=== PATIENT | male | born 1990 | race Caucasian/White ===

== ENCOUNTER 2017-02-23 15:19 | Emergency (ER) | payer OTHER ==
[2017-02-23] MEDS ORDERED: ONDANSETRON 4 MG/2 ML VIAL IVP STA (17:07)
[2017-02-23] MEDS ORDERED: PANTOPRAZOLE 40 MG/10 ML VIAL IVP STA (17:08)
--- NOTE | 2017-02-23 17:10 | ED ---
General Adult HPI - General Chief complaint: Abdominal Pain Stated complaint: abdominal pain/threw up blood Time Seen by Provider: 02/23/17 17:01 Source: patient, RN notes reviewed Mode of arrival: ambulatory Limitations: no limitations - History of Present Illness Initial comments: Patient is a 27-year-old male significant past medical history, who presents emergency room today with a chief complaint of symptoms of nausea vomiting and epigastric pain. He does admit that he had an episode of vomiting. States had a second episode he saw when he believes to be possibly some blood clots in the emesis. Patient states never had any symptoms similar to this in the past. Does admit that he did eat lunch this afternoon and then had an episode of vomiting approximately an hour later. Patient denies any complaints or symptoms. Patient denies any recent fever, chills, shortness of breath, chest pain, back pain, numbness or tingling, dysuria or hematuria, constipation or diarrhea, headaches or visual changes, or any other complaints. - Related Data Previous Rx's Medication Instructions Recorded Omeprazole 20 mg PO DAILY #20 capsule. 02/23/17 Ondansetron Odt [Zofran ODT] 4 mg PO Q8HR PRN #20 tab 02/23/17 Allergies Allergy/AdvReac Type Severity Reaction Status Date / Time cat dander AdvReac Wheezing Verified 02/23/17 15:35 Review of Systems ROS Statement: Those systems with pertinent positive or pertinent negative responses have been documented in the HPI. ROS Other: All systems not noted in ROS Statement are negative. Past Medical History Past Medical History: No Reported History History of Any Multi-Drug Resistant Organisms: None Reported Past Surgical History: No Surgical Hx Reported Past Psychological History: No Psychological Hx Reported Smoking Status: Current every day smoker Past Alcohol Use History: Occasional Past Drug Use History: None Reported General Exam - General Exam Comments Initial Comments: General: The patient is awake and alert, in no distress, and does not appear acutely ill. Eye: Pupils are equal, round and reactive to light, extra-ocular movements are intact. No nystagmus. There is normal conjunctiva bilaterally. No signs of icterus. Ears, nose, mouth and throat: There are moist mucous membranes and no oral lesions. Neck: The neck is supple, there is no tenderness or JVD. Cardiovascular: There is a regular rate and rhythm. No murmur, rub or gallop is appreciated. Respiratory: Lungs are clear to auscultation, respirations are non-labored, breath sounds are equal. No wheezes, stridor, rales, or rhonchi. Gastrointestinal: Soft on palpation. Mild tenderness epigastric. No rebound tenderness. No Guarding. No CVA tenderness. Musculoskeletal: Normal ROM, no tenderness. Strength 5/5. Sensation intact. Pulses equal bilaterally 2+. Neurological: A&O x 3. CN II-XII intact, There are no obvious motor or sensory deficits. Coordination appears grossly intact. Speech is normal. Skin: Skin is warm and dry and no rashes or lesions are noted. Psychiatric: Cooperative, appropriate mood & affect, normal judgment. Limitations: no limitations Course Vital Signs 02/23/17 02/23/17 15:33 17:34 Temperature 98.4 F 100.1 F H Pulse Rate 82 59 L Respiratory 20 18 Rate Blood Pressure 137/93 125/87 O2 Sat by Pulse 100 98 Oximetry Medical Decision Making - Medical Decision Making X-ray reviewed as negative for any acute abnormalities. Patient does admit to 2 episodes vomiting. Denies any blood until the second episode. Patient's abdomen is soft nontender at this time is feeling better. He was sleeping on stretcher. Patient's labs reviewed. Will be discharged home advised to follow family doctor will be continued on Zofran and Prilosec. - Lab Data Result diagrams: 02/23/17 17:05 02/23/17 17:05 Lab Results 02/23/17 02/23/17 02/23/17 Range/Units 17:05 17:05 17:30 WBC 11.1 H (3.8-10.6) k/uL RBC 5.21 (4.30-5.90) m/uL Hgb 16.5 (13.0-17.5) gm/dL Hct 48.6 (39.0-53.0) % MCV 93.3 (80.0-100.0) fL MCH 31.6 (25.0-35.0) pg MCHC 33.9 (31.0-37.0) g/dL RDW 12.7 (11.5-15.5) % Plt Count 258 (150-450) k/uL Neutrophils % 76 % Lymphocytes % 15 % Monocytes % 4 % Eosinophils % 4 % Basophils % 1 % Neutrophils # 8.5 H (1.3-7.7) k/uL Lymphocytes # 1.6 (1.0-4.8) k/uL Monocytes # 0.4 (0-1.0) k/uL Eosinophils # 0.4 (0-0.7) k/uL Basophils # 0.1 (0-0.2) k/uL Sodium 143 (137-145) mmol/L Potassium 4.1 (3.5-5.1) mmol/L Chloride 104 (98-107) mmol/L Carbon Dioxide 28 (22-30) mmol/L Anion Gap 11 mmol/L BUN 14 (9-20) mg/dL Creatinine 0.75 (0.66-1.25) mg/dL Est GFR (MDRD) Af Amer >60 (>60 ml/min/1.73 sqM) Est GFR (MDRD) Non-Af >60 (>60 ml/min/1.73 sqM) Glucose 113 H (74-99) mg/dL Calcium 10.5 H (8.4-10.2) mg/dL Total Bilirubin 0.7 (0.2-1.3) mg/dL AST 26 (17-59) U/L ALT 28 (21-72) U/L Alkaline Phosphatase 58 (38-126) U/L Total Protein 8.0 (6.3-8.2) g/dL Albumin 5.0 (3.5-5.0) g/dL Amylase 66 (30-110) U/L Lipase 68 (23-300) U/L Urine Color Yellow Urine Appearance Clear (Clear) Urine pH 6.5 (5.0-8.0) Ur Specific [place] 1.023 (1.001-1.035) Urine Protein Trace H (Negative) Urine Glucose (UA) Negative (Negative) Urine Ketones 1+ H (Negative) Urine Blood Negative (Negative) Urine Nitrite Negative (Negative) Urine Bilirubin Negative (Negative) Urine Urobilinogen <2.0 (<2.0) mg/dL Ur Leukocyte Esterase Negative (Negative) Disposition Clinical Impression: Nausea & vomiting Disposition: HOME SELF-CARE Condition: Good Instructions: Acute Nausea and Vomiting (ED) Additional Instructions: Please use medication as discussed. Please follow-up with family doctor in the next 2 days of symptoms have not improved. Please return to emergency room if the symptoms increase or worsen or for any other concerns. Prescriptions: Omeprazole 20 mg PO DAILY #20 capsule. Ondansetron Odt [Zofran ODT] 4 mg PO Q8HR PRN #20 tab PRN Reason: Nausea Referrals: None,Stated [Primary Care Provider] - 1-2 days Time of Disposition: 18:29
[2017-02-23 17:22] LABS: Basophils # (A) 0.1 k/uL (0-0.2); Basophils % (A) 1 %; CH 32.6; Eosinophils # (A) 0.4 k/uL (0-0.7); Eosinophils % (A) 4 %; HCT 48.6 % (39.0-53.0); HDW 2.39; HGB 16.5 gm/dL (13.0-17.5); Luc # (Auto) 0.15; Luc % (Auto) 1; Lymphocytes # (A) 1.6 k/uL (1.0-4.8); Lymphocytes % (A) 15 %; MCH 31.6 pg (25.0-35.0); MCHC 33.9 g/dL (31.0-37.0); MCV 93.3 fL (80.0-100.0); Mean Platelet Volume 6.9; Monocytes # (A) 0.4 k/uL (0-1.0); Monocytes % (A) 4 %; Neutrophils # (A) 8.5 k/uL (1.3-7.7); Neutrophils % (A) 76 %; RBC 5.21 m/uL (4.30-5.90); RDW 12.7 % (11.5-15.5); WBC 11.1 k/uL (3.8-10.6); WBC (Perox) 10.99
[2017-02-23 17:34] VITALS: RESP 18
[2017-02-23 17:41] LABS: ALT 28 U/L (21-72); AST 26 U/L (17-59); Alkaline Phosphatase 58 U/L (38-126); Amylase 66 U/L (30-110); Anion Gap 11 mmol/L; Blood Urea Nitrogen 14 mg/dL (9-20); Calcium 10.5 mg/dL (8.4-10.2); Carbon Dioxide 28 mmol/L (22-30); Chloride 104 mmol/L (98-107); Glucose 113 mg/dL (74-99); Non-African American GFR(MDRD) >60 (>60 ml/min/1.73 sqM); Potassium 4.1 mmol/L (3.5-5.1); Sodium 143 mmol/L (137-145); Total Bilirubin 0.7 mg/dL (0.2-1.3)
[2017-02-23 17:43] LABS: Appearance,Urine Clear (Clear); Bilirubin,Urine Negative (Negative); Glucose,Urine (UA) Negative (Negative); Ketones,Urine 1+ (Negative); Leukocyte Esterase,Urine Negative (Negative); Nitrite,Urine Negative (Negative); PH, Urine 6.5 (5.0-8.0); Protein,Urine Trace (Negative); Specific Gravity,Urine 1.023 (1.001-1.035); UA Billing (MACRO vs. MICRO) CHEM; Urobilinogen,Urine <2.0 mg/dL (<2.0)
--- NOTE | 2017-02-23 18:03 | XR ---
EXAMINATION TYPE: XR chest 2V DATE OF EXAM: 02/23/2017 COMPARISON: November 23, 2015 HISTORY: Vomited blood, pain TECHNIQUE: Frontal and lateral views of the chest are obtained. FINDINGS: There is no focal air space opacity, pleural effusion, or pneumothorax seen. The cardiac silhouette size is within normal limits. No pneumoperitoneum. The osseous structures are intact. IMPRESSION: No acute cardiopulmonary process.
[2017-02-23 18:41] VITALS: BP 131/84; PULSE 67; TEMP 99.7
== END 2017-02-23 18:41 | disposition home or self-care (01) ==
LOC: EC 15:19
DX: R11.2 Nausea with vomiting, unspecified (principal); R10.13 Epigastric pain; F17.200 Nicotine dependence, unspecified, uncomplicated; Z91.09 Other allergy status, other than to drugs and biological substances
CPT/HCPCS: 96374 ×2; 96375 ×2; 99284 ×2; 36415; 80053; 82150; 83690; 85025; 81003; 71020; J2405; C9113

== ENCOUNTER 2017-09-29 18:59 | Emergency (ER) | payer OTHER ==
[2017-09-29 19:10] VITALS: RESP 18
--- NOTE | 2017-09-29 19:42 | ED ---
Psych HPI - General Chief Complaint: Psychiatric Symptoms Stated Complaint: Mental Health Time Seen by Provider: 09/29/17 19:10 Source: patient, RN notes reviewed Mode of arrival: ambulatory Limitations: no limitations - History of Present Illness Initial Comments: 27-year-old male presents emergency from for psychiatric evaluation. Patient states that he had court today for driving while on a suspended license Patient states that he was ordered to have psychiatric evaluation within 30 days. Patient states she is not suicidal or homicidal. Denies depression, anxiety has no mental health history. Denies any illicit drug use. Patient states he is just here to comply with court order reasons. - Related Data Home Medications Medication Instructions Recorded Confirmed No Known Home Medications [No 09/29/17 09/29/17 Known Home Medications] Allergies Allergy/AdvReac Type Severity Reaction Status Date / Time cat dander AdvReac Wheezing Verified 09/29/17 19:30 Review of Systems ROS Statement: Those systems with pertinent positive or pertinent negative responses have been documented in the HPI. ROS Other: All systems not noted in ROS Statement are negative. Past Medical History Past Medical History: No Reported History History of Any Multi-Drug Resistant Organisms: None Reported Past Surgical History: No Surgical Hx Reported Past Psychological History: No Psychological Hx Reported Smoking Status: Current every day smoker Past Alcohol Use History: None Reported Past Drug Use History: None Reported General Exam Limitations: no limitations General appearance: alert, in no apparent distress Head exam: Present: atraumatic, normocephalic, normal inspection Eye exam: Present: normal appearance, PERRL, EOMI. Absent: scleral icterus, conjunctival injection, periorbital swelling ENT exam: Present: normal exam, normal oropharynx, mucous membranes moist, TM's normal bilaterally Neck exam: Present: normal inspection, full ROM. Absent: tenderness, meningismus, lymphadenopathy Respiratory exam: Present: normal lung sounds bilaterally. Absent: respiratory distress, wheezes, rales, rhonchi, stridor Cardiovascular Exam: Present: regular rate, normal rhythm, normal heart sounds. Absent: systolic murmur, diastolic murmur, rubs, gallop, clicks GI/Abdominal exam: Present: soft, normal bowel sounds. Absent: distended, tenderness, guarding, rebound, rigid Neurological exam: Present: alert, oriented X3, CN II-XII intact Psychiatric exam: Present: normal affect, normal mood Skin exam: Present: warm, dry, intact, normal color. Absent: rash Course Vital Signs 09/29/17 19:06 Temperature 98.6 F Pulse Rate 66 Respiratory 18 Rate Blood Pressure 158/88 O2 Sat by Pulse 100 Oximetry Medical Decision Making - Medical Decision Making 27-year-old male present emergency dept for psychiatric evaluation as ordered by court. Patient has no mental illnesses. Patient was evaluated by EPS case discussed with psychiatrist patient will be discharged. - Lab Data Lab Results 09/29/17 Range/Units 19:44 Urine Opiates Screen Not Detected (NotDetected) Ur Oxycodone Screen Not Detected (NotDetected) Urine Methadone Screen Not Detected (NotDetected) Ur Propoxyphene Screen Not Detected (NotDetected) Ur Barbiturates Screen Not Detected (NotDetected) U Tricyclic Antidepress Not Detected (NotDetected) Ur Phencyclidine Scrn Not Detected (NotDetected) Ur Amphetamines Screen Not Detected (NotDetected) U Methamphetamines Scrn Not Detected (NotDetected) U Benzodiazepines Scrn Not Detected (NotDetected) Urine Cocaine Screen Not Detected (NotDetected) U Marijuana (THC) Screen Not Detected (NotDetected) Disposition Clinical Impression: Encounter for psychological evaluation Disposition: HOME SELF-CARE Condition: Stable Additional Instructions: Please return to the Emergency Department if symptoms worsen or any other concerns. Referrals: None,Stated [Primary Care Provider] - 1-2 days Time of Disposition: 20:38
[2017-09-29 20:18] LABS: Amphetamine Screen,Urine Not Detected (NotDetected); Barbiturate Screen,Urine Not Detected (NotDetected); Benzodiazepines Screen,Urine Not Detected (NotDetected); Cocaine Screen,Urine Not Detected (NotDetected); Methadone Screen, Urine Not Detected (NotDetected); Opiate Screen,Urine Not Detected (NotDetected); Oxycodone Screen, Urine Not Detected (NotDetected); Phencyclidine Screen,Urine Not Detected (NotDetected); Tricyclic Antidepressant,Urine Not Detected (NotDetected); Urn Cannabinoid Scrn Not Detected (NotDetected)
[2017-09-29 20:55] VITALS: BP 129/79; PULSE 63; TEMP 98
== END 2017-09-29 20:55 | disposition home or self-care (01) ==
LOC: EC 18:59
DX: Z00.8 Encounter for other general examination (principal); Z91.048 Other nonmedicinal substance allergy status
CPT/HCPCS: 80306; 82075; 99284

== ENCOUNTER 2020-04-10 15:12 | Emergency (ER) | payer OTHER ==
[2020-04-10] MEDS ORDERED: SODIUM CHLORIDE 0.9% 1,000 ML IV STA (16:35)
[2020-04-10] MEDS ORDERED: LORazepam 2 MG/ML INJ IV STA (16:35)
[2020-04-10 17:02] LABS: Basophils % (A) 1 %; Eosinophils # (A) 0.1 k/uL (0-0.7); Eosinophils % (A) 1 %; HCT 43.4 % (39.0-53.0); Lymphocytes % (A) 20 %; MCHC 34.6 g/dL (31.0-37.0); MCV 95.3 fL (80.0-100.0); Mean Platelet Volume 8.4; Monocytes # (A) 0.2 k/uL (0-1.0); Monocytes % (A) 5 %; Neutrophils # (A) 3.8 k/uL (1.3-7.7); Neutrophils % (A) 72 %; Platelet Count 200 k/uL (150-450); RBC 4.56 m/uL (4.30-5.90); RDW 12.3 % (11.5-15.5); WBC 5.2 k/uL (3.8-10.6)
[2020-04-10 17:03] VITALS: RESP 18
[2020-04-10 17:17] LABS: INR 0.9 (<1.2); Partial Thromboplastin Time 23.7 sec (22.0-30.0); Prothrombin Time 9.8 sec (9.0-12.0)
[2020-04-10 17:25] LABS: ALT 37 U/L (4-49); AST 52 U/L (17-59); African American GFR (CKD) >90 (>60 ml/min/1.73 sqM); Albumin 4.5 g/dL (3.5-5.0); Alkaline Phosphatase 79 U/L (38-126); Anion Gap 9 mmol/L; Blood Urea Nitrogen 7 mg/dL (9-20); Calcium 9.4 mg/dL (8.4-10.2); Carbon Dioxide 24 mmol/L (22-30); Chloride 106 mmol/L (98-107); Glucose 102 mg/dL (74-99); Magnesium 1.7 mg/dL (1.6-2.3); Non-African American GFR(CKD) >90 (>60 ml/min/1.73 sqM); Potassium 3.8 mmol/L (3.5-5.1); Sodium 139 mmol/L (137-145); Total Bilirubin 0.5 mg/dL (0.2-1.3); Total Protein 7.1 g/dL (6.3-8.2)
--- NOTE | 2020-04-10 17:50 | XR ---
EXAMINATION TYPE: XR chest 2V DATE OF EXAM: 04/10/2020 CLINICAL HISTORY: Difficulty breathing TECHNIQUE: Frontal and lateral views of the chest are obtained. COMPARISON: Chest radiograph 02/23/2017 FINDINGS: The cardiomediastinal silhouette is within normal limits for size. Pulmonary vasculature i s normal. There is no focal air space opacity, pleural effusion, or pneumothorax seen. The osseous st ructures are intact. IMPRESSION: No acute cardiopulmonary process.
--- NOTE | 2020-04-10 17:55 | ED ---
General Adult HPI - General Chief complaint: Shortness of Breath Stated complaint: SOB,Lightheaded Time Seen by Provider: 04/10/20 16:25 Source: patient, RN notes reviewed, old records reviewed Mode of arrival: wheelchair Limitations: no limitations - History of Present Illness Initial comments: Patient is a 30-year-old male who presents emergency Department today with complaints of feeling short of breath and dizzy. He reports symptoms seem started around 11:00 today but is anxious. He followed his body just "shutting down". Patient states he has history of anxiety difficult to breathe through that is episodes. - Related Data Home Medications Medication Instructions Recorded Confirmed No Known Home Medications 09/29/17 09/29/17 Allergies Allergy/AdvReac Type Severity Reaction Status Date / Time cat dander AdvReac Wheezing Verified 04/10/20 16:03 Review of Systems ROS Statement: Those systems with pertinent positive or pertinent negative responses have been documented in the HPI. ROS Other: All systems not noted in ROS Statement are negative. Past Medical History Past Medical History: No Reported History History of Any Multi-Drug Resistant Organisms: None Reported Past Surgical History: No Surgical Hx Reported Past Psychological History: No Psychological Hx Reported Smoking Status: Current every day smoker Past Alcohol Use History: Occasional Past Drug Use History: None Reported General Exam - General Exam Comments Initial Comments: 30-year-old male. Alert and oriented. No distress. Limitations: no limitations General appearance: alert, in no apparent distress Head exam: Present: atraumatic, normocephalic, normal inspection Eye exam: Present: normal appearance, PERRL, EOMI. Absent: scleral icterus, conjunctival injection, periorbital swelling ENT exam: Present: normal exam, mucous membranes moist Neck exam: Present: normal inspection. Absent: tenderness, meningismus, lymphadenopathy Respiratory exam: Present: normal lung sounds bilaterally. Absent: respiratory distress, wheezes, rales, rhonchi, stridor Cardiovascular Exam: Present: regular rate, normal rhythm, normal heart sounds. Absent: systolic murmur, diastolic murmur, rubs, gallop, clicks GI/Abdominal exam: Present: soft, normal bowel sounds. Absent: distended, tenderness, guarding, rebound, rigid Extremities exam: Present: normal inspection, full ROM, normal capillary refill. Absent: tenderness, pedal edema, joint swelling, calf tenderness Back exam: Present: normal inspection Neurological exam: Present: alert, oriented X3, CN II-XII intact Psychiatric exam: Present: normal affect, normal mood Skin exam: Present: warm, dry, intact, normal color. Absent: rash Course Vital Signs 04/10/20 04/10/20 04/10/20 16:00 16:55 18:44 Temperature 98.7 F 98.4 F Pulse Rate 76 72 86 Respiratory 20 18 18 Rate Blood Pressure 155/93 132/93 131/87 O2 Sat by Pulse 99 96 97 Oximetry EKG Findings - EKG Comments: EKG Findings:: EKG shows normal sinus rhythm lateral infarct age injury. Ventricular rate of 80 beats were minute. Pulse 122 ms. QRS is 80 ms. QT QTc is 374/431 ms. Medical Decision Making - Medical Decision Making 30-year-old male since reassured today with episode of anxiety, any shakiness and feeling lightheaded. He was given IV fluids, and Ativan labwork obtained. EKG is reviewed and negative for acute changes. Patient was reevaluated and resting comfortably bed feeling better after receiving Ativan. Denies any chest pain at this time. I discussed the Patient symptoms seem related to anxiety and panic disorder. I advised Patient to follow-up with primary care doctor. Discussed strict return parameters. - Lab Data Result diagrams: 04/10/20 16:46 04/10/20 16:46 Lab Results 04/10/20 04/10/20 04/10/20 Range/Units 16:46 16:46 16:46 WBC 5.2 (3.8-10.6) k/uL RBC 4.56 (4.30-5.90) m/uL Hgb 15.0 (13.0-17.5) gm/dL Hct 43.4 (39.0-53.0) % MCV 95.3 (80.0-100.0) fL MCH 33.0 (25.0-35.0) pg MCHC 34.6 (31.0-37.0) g/dL RDW 12.3 (11.5-15.5) % Plt Count 200 (150-450) k/uL Neutrophils % 72 % Lymphocytes % 20 % Monocytes % 5 % Eosinophils % 1 % Basophils % 1 % Neutrophils # 3.8 (1.3-7.7) k/uL Lymphocytes # 1.0 (1.0-4.8) k/uL Monocytes # 0.2 (0-1.0) k/uL Eosinophils # 0.1 (0-0.7) k/uL Basophils # 0.0 (0-0.2) k/uL PT 9.8 (9.0-12.0) sec INR 0.9 (<1.2) APTT 23.7 (22.0-30.0) sec Sodium 139 (137-145) mmol/L Potassium 3.8 (3.5-5.1) mmol/L Chloride 106 (98-107) mmol/L Carbon Dioxide 24 (22-30) mmol/L Anion Gap 9 mmol/L BUN 7 L (9-20) mg/dL Creatinine 0.60 L (0.66-1.25) mg/dL Est GFR (CKD-EPI)AfAm >90 (>60 ml/min/1.73 sqM) Est GFR (CKD-EPI)NonAf >90 (>60 ml/min/1.73 sqM) Glucose 102 H (74-99) mg/dL Plasma Lactic Acid Brett (0.7-2.0) mmol/L Calcium 9.4 (8.4-10.2) mg/dL Magnesium 1.7 (1.6-2.3) mg/dL Total Bilirubin 0.5 (0.2-1.3) mg/dL AST 52 (17-59) U/L ALT 37 (4-49) U/L Alkaline Phosphatase 79 (38-126) U/L Troponin I (0.000-0.034) ng/mL NT-Pro-B Natriuret Pep pg/mL Total Protein 7.1 (6.3-8.2) g/dL Albumin 4.5 (3.5-5.0) g/dL 04/10/20 04/10/20 04/10/20 Range/Units 16:46 16:46 16:46 WBC (3.8-10.6) k/uL RBC (4.30-5.90) m/uL Hgb (13.0-17.5) gm/dL Hct (39.0-53.0) % MCV (80.0-100.0) fL MCH (25.0-35.0) pg MCHC (31.0-37.0) g/dL RDW (11.5-15.5) % Plt Count (150-450) k/uL Neutrophils % % Lymphocytes % % Monocytes % % Eosinophils % % Basophils % % Neutrophils # (1.3-7.7) k/uL Lymphocytes # (1.0-4.8) k/uL Monocytes # (0-1.0) k/uL Eosinophils # (0-0.7) k/uL Basophils # (0-0.2) k/uL PT (9.0-12.0) sec INR (<1.2) APTT (22.0-30.0) sec Sodium (137-145) mmol/L Potassium (3.5-5.1) mmol/L Chloride (98-107) mmol/L Carbon Dioxide (22-30) mmol/L Anion Gap mmol/L BUN (9-20) mg/dL Creatinine (0.66-1.25) mg/dL Est GFR (CKD-EPI)AfAm (>60 ml/min/1.73 sqM) Est GFR (CKD-EPI)NonAf (>60 ml/min/1.73 sqM) Glucose (74-99) mg/dL Plasma Lactic Acid Brett 1.9 (0.7-2.0) mmol/L Calcium (8.4-10.2) mg/dL Magnesium (1.6-2.3) mg/dL Total Bilirubin (0.2-1.3) mg/dL AST (17-59) U/L ALT (4-49) U/L Alkaline Phosphatase (38-126) U/L Troponin I <0.012 (0.000-0.034) ng/mL NT-Pro-B Natriuret Pep <11 pg/mL Total Protein (6.3-8.2) g/dL Albumin (3.5-5.0) g/dL - Radiology Data Radiology results: report reviewed Chest x-ray shows no acute process. Disposition Clinical Impression: Anxiety Disposition: HOME SELF-CARE Condition: Good Instructions (If sedation given, give patient instructions): Anxiety (ED) Additional Instructions: Please use medication as discussed. Please follow up with family doctor if symptoms have not improved over the next two days. Please return to the emergency room if your symptoms increase or worsen or for any other concerns. Is patient prescribed a controlled substance at d/c from ED?: No Referrals: None,Stated [Primary Care Provider] - 1-2 days Saad Forman MD [REFERRING] - 1-2 days Time of Disposition: 18:30
[2020-04-10 18:46] VITALS: BP 131/87; PULSE 86; TEMP 98.4
== END 2020-04-10 18:47 | disposition home or self-care (01) ==
LOC: EC 15:12
DX: F41.9 Anxiety disorder, unspecified (principal); F17.200 Nicotine dependence, unspecified, uncomplicated; Z91.09 Other allergy status, other than to drugs and biological substances
CPT/HCPCS: 36415; 93005; 83880; 80053; 83605; 83735; 84484; 85025; 85610; 85730; 71046; 99285; 96374; 96361 ×2; J2060

== ENCOUNTER 2022-06-05 10:47 | Emergency (ER) | payer BC, OTHER ==
[2022-06-05 10:50] VITALS: RESP 18
--- NOTE | 2022-06-05 11:37 | XR ---
EXAMINATION TYPE: XR finger RT DATE OF EXAM: 06/05/2022 COMPARISON: NONE HISTORY: 32-year-old male pain and trauma to the third digit. TECHNIQUE: 3 views coned down right middle finger FINDINGS: There is a nondisplaced fracture involving the tuft of the third distal phalanx. No subluxation or di slocation. IMPRESSION: Exam positive for a nondisplaced fracture third distal phalangeal tuft.
--- NOTE | 2022-06-05 11:53 | ED ---
Upper Extremity HPI - General Chief Complaint: Extremity Injury, Upper Stated Complaint: Poss broken finger Time Seen by Provider: 06/05/22 10:48 Source: patient, RN notes reviewed Mode of arrival: ambulatory Limitations: no limitations - History of Present Illness Initial Comments: 32-year-old male presents emergency Department chief complaint of right hand middle finger injury. Patient states his playing softball states took off the tip of his finger. Patient states is moderate pain, bruising swelling today. Patient denies any other injuries. Patient states he is able to move it. - Related Data Home Medications Medication Instructions Recorded Confirmed No Known Home Medications 09/29/17 09/29/17 Allergies Allergy/AdvReac Type Severity Reaction Status Date / Time cat dander AdvReac Wheezing Verified 04/10/20 16:03 milk AdvReac Nausea & Verified 06/05/22 10:50 Vomiting & Diarrhea Review of Systems ROS Statement: Those systems with pertinent positive or pertinent negative responses have been documented in the HPI. ROS Other: All systems not noted in ROS Statement are negative. Past Medical History Past Medical History: No Reported History History of Any Multi-Drug Resistant Organisms: None Reported Past Surgical History: No Surgical Hx Reported Past Psychological History: No Psychological Hx Reported Smoking Status: Former smoker Past Alcohol Use History: Occasional Past Drug Use History: None Reported General Exam Limitations: no limitations General appearance: alert, in no apparent distress Head exam: Present: atraumatic, normocephalic, normal inspection Respiratory exam: Present: normal lung sounds bilaterally. Absent: respiratory distress, wheezes, rales, rhonchi, stridor Cardiovascular Exam: Present: regular rate, normal rhythm, normal heart sounds. Absent: systolic murmur, diastolic murmur, rubs, gallop, clicks Extremities exam: Present: other (Right hand third digit there is moderate swelling and ecchymosis in the distal portion, tenderness of palpation full range of motion LS contact) Course Vital Signs 06/05/22 10:47 Temperature 98.2 F Pulse Rate 74 Respiratory 18 Rate Blood Pressure 181/104 O2 Sat by Pulse 100 Oximetry Medical Decision Making - Medical Decision Making 32-year-old presented for right hand injury patient has a fracture patient was placed in a finger splint patient will follow-up for witha piece. Return parameters were discussed. Disposition Clinical Impression: Finger fracture, right Disposition: HOME SELF-CARE Condition: Stable Instructions (If sedation given, give patient instructions): Finger Fracture (ED) Additional Instructions: Please return to the Emergency Department if symptoms worsen or any other concerns. Is patient prescribed a controlled substance at d/c from ED?: No Referrals: None,Stated [Primary Care Provider] - 1-2 days Time of Disposition: 11:53
[2022-06-05 12:35] VITALS: BP 163/108; PULSE 57; TEMP 98
== END 2022-06-05 12:35 | disposition home or self-care (01) ==
LOC: EC 10:47
DX: S62.662A Nondisplaced fracture of distal phalanx of right middle finger, initial encounter for closed fracture (principal); Z87.891 Personal history of nicotine dependence; Z91.048 Other nonmedicinal substance allergy status; Z91.011 Allergy to milk products; W21.07XA Struck by softball, initial encounter; Y93.64 Activity, baseball
CPT/HCPCS: 99284

== ENCOUNTER 2022-06-15 10:42 | Inpatient (IN) | payer OTHER ==
[2022-06-15] MEDS ORDERED: SODIUM CHLORIDE 0.9% 1,000 ML IV STA (11:11)
[2022-06-15] MEDS ORDERED: SODIUM CHLORIDE 0.9% 1,000 ML with THIAMINE 100 MG, FOLIC ACID 1 MG IV ONE ×3 (11:15)
[2022-06-15] MEDS ORDERED: LORazepam 1 MG TAB PO PRN ×3 (11:19)
[2022-06-15] MEDS ORDERED: LORazepam 2 MG/ML INJ IV PRN (11:19)
[2022-06-15] MEDS ORDERED: LORazepam 0.5 MG TAB PO PRN (11:19)
[2022-06-15] MEDS ORDERED: chlordiazePOXIDE 25 MG CAP PO PRN ×2 (11:25)
[2022-06-15 11:27] LABS: Basophils # (A) 0.1 k/uL (0-0.2); Basophils % (A) 1 %; Eosinophils # (A) 0.2 k/uL (0-0.7); Eosinophils % (A) 4 %; HCT 43.6 % (39.0-53.0); HGB 15.1 gm/dL (13.0-17.5); Lymphocytes # (A) 1.6 k/uL (1.0-4.8); Lymphocytes % (A) 29 %; MCH 31.7 pg (25.0-35.0); MCHC 34.5 g/dL (31.0-37.0); MCV 91.8 fL (80.0-100.0); Mean Platelet Volume 8.5; Monocytes # (A) 0.3 k/uL (0-1.0); Monocytes % (A) 6 %; Neutrophils # (A) 3.1 k/uL (1.3-7.7); Neutrophils % (A) 57 %; Platelet Count 191 k/uL (150-450); RBC 4.75 m/uL (4.30-5.90); WBC 5.4 k/uL (3.8-10.6)
[2022-06-15 11:36] LABS: ALT 71 U/L (4-49); AST 113 U/L (17-59); African American GFR (CKD) >90 (>60 ml/min/1.73 sqM); Albumin 4.6 g/dL (3.5-5.0); Alkaline Phosphatase 93 U/L (38-126); Anion Gap 15 mmol/L; Blood Urea Nitrogen 9 mg/dL (9-20); Calcium 9.3 mg/dL (8.4-10.2); Carbon Dioxide 23 mmol/L (22-30); Chloride 102 mmol/L (98-107); Glucose 117 mg/dL (74-99); Lipase 168 U/L (23-300); Magnesium 1.6 mg/dL (1.6-2.3); Non-African American GFR(CKD) >90 (>60 ml/min/1.73 sqM); Potassium 3.5 mmol/L (3.5-5.1); Sodium 140 mmol/L (137-145); Total Bilirubin 0.9 mg/dL (0.2-1.3); Total Protein 7.4 g/dL (6.3-8.2)
[2022-06-15 11:40] LABS: Alcohol 196 mg/dL
--- NOTE | 2022-06-15 11:48 | XR ---
EXAMINATION TYPE: XR chest 2V DATE OF EXAM: 06/15/2022 11:26 AM COMPARISON: Chest radiographs from 04/10/2020 TECHNIQUE: XR chest 2V Frontal and lateral views of the chest. CLINICAL INDICATION:Male, 32 years old with history of Chest Pain; FINDINGS: Lungs/Pleura: There is no evidence of pleural effusion, focal consolidation, or pneumothorax. Pulmonary vascularity: Unremarkable. Heart/mediastinum: Cardiomediastinal silhouette is unremarkable. Musculoskeletal: No acute osseous pathology. IMPRESSION: No acute cardiopulmonary disease/process.
[2022-06-15 12:07] LABS: INR 0.9 (<1.2); Partial Thromboplastin Time 25.1 sec (22.0-30.0)
[2022-06-15] MEDS: chlordiazePOXIDE 25 MG CAP PO PRN ×3 (12:20→21:09)
--- NOTE | 2022-06-15 12:53 | ED ---
Chest Pain HPI - General Chief Complaint: Chest Pain Stated Complaint: Chest pain Time Seen by Provider: 06/15/22 11:02 Source: patient Mode of arrival: ambulatory Limitations: no limitations - History of Present Illness Initial Comments: Patient is a 32-year-old male with a past medical history of alcohol use disorder who presents to the emergency department with a chief complaint of chest heaviness. Patient states he feels very anxious which is causing an anxious/heaviness feeling across his chest. Patient states symptoms started this morning around 10 AM and are consistent. There is no radiation. He denies lightheadedness, dizziness, abdominal pain, nausea, vomiting, sweating. Patient has been drinking a fifth or so of vodka for the past week and a half. Patient adamant that he would like to stop drinking. Last drink was this morning. He admits to history of delirium tremens. Denies history of alcohol withdrawal seizure. Reports occasional use of marijuana otherwise denies drug use. Denies tobacco use. Denies history of cardiac disease. Family history of cardiac disease includes father with diabetes and brother with hypertension. - Related Data Home Medications Medication Instructions Recorded Confirmed No Known Home Medications 09/29/17 09/29/17 Allergies Allergy/AdvReac Type Severity Reaction Status Date / Time cat dander AdvReac Wheezing Verified 06/15/22 10:49 milk AdvReac Nausea & Verified 06/15/22 10:49 Vomiting & Diarrhea Review of Systems ROS Statement: Those systems with pertinent positive or pertinent negative responses have been documented in the HPI. ROS Other: All systems not noted in ROS Statement are negative. EKG Findings - EKG Comments: EKG Findings:: EKG taken at its 10:54. Sinus rhythm with sinus arrhythmia, no ST segment or T-wave abnormality. Ventricular rate 76. MD interval 124. QRS duration 105. QTc 425 Past Medical History Past Medical History: No Reported History History of Any Multi-Drug Resistant Organisms: None Reported Past Surgical History: No Surgical Hx Reported Past Psychological History: No Psychological Hx Reported Smoking Status: Vaper Past Alcohol Use History: Abuse, Daily Past Drug Use History: None Reported General Exam Limitations: no limitations General appearance: alert, anxious Eye exam: Present: normal appearance, PERRL, EOMI. Absent: scleral icterus, conjunctival injection, periorbital swelling ENT exam: Present: other (tongue fasciculations) Respiratory exam: Present: normal lung sounds bilaterally. Absent: respiratory distress, wheezes, rales, rhonchi, stridor, chest wall tenderness Cardiovascular Exam: Present: regular rate, normal rhythm, normal heart sounds. Absent: systolic murmur, diastolic murmur, rubs, gallop, clicks GI/Abdominal exam: Present: soft, normal bowel sounds. Absent: distended, tenderness, guarding, rebound, rigid Extremities exam: Present: other (bilateral hand tremors) Neurological exam: Present: alert, oriented X3, CN II-XII intact Psychiatric exam: Present: normal affect, normal mood Skin exam: Present: warm (y), dry, intact, normal color. Absent: rash Course Vital Signs 06/15/22 06/15/22 06/15/22 10:46 11:30 12:00 Temperature 98 F Pulse Rate 89 91 105 H Respiratory 20 20 22 Rate Blood Pressure 179/110 170/120 161/113 O2 Sat by Pulse 100 98 98 Oximetry 06/15/22 12:30 Temperature Pulse Rate 94 Respiratory 24 Rate Blood Pressure 170/106 O2 Sat by Pulse 98 Oximetry Chest Pain MDM - MDM This is a 32-year-old male who presents with chest heaviness.The pressure elevated at 179/110. Pulse within normal limits 89. Patient appears anxious otherwise in no distress. Biateral hand tremors and tongue fasciculation is noted. EKG shows sinus rhythm with sinus arrhythmia, no ST segment or T-wave abnormalities. Laboratory studies obtained. Troponin is within normal limits. Serum alcohol is 196. Patient at low risk for adverse cardiac outcome and p resentation today appears to be related to anxiety and alcohol intoxication/withdrawal. Se[place]ell scale initiated. Patient was given Librium 75 mg which improved anxiety and chest tightness. Banana bag given. Results discussed with patient. Patient to be admitted for alcohol intoxication with early withdrawal. Will trend troponin. Catapress given for consistently elevated blood pressure. Case discussed with Dr. Phillips who accepts admission. Patient admitted in stable condition. Dr. Newman is my attending. Disposition Clinical Impression: Anxiety, Alcohol withdrawal, Alcohol intoxication Disposition: ADMITTED IP TO THIS [facility] Condition: Good Referrals: None,Stated [Primary Care Provider] - 1-2 days Decision Time: 12:53
[2022-06-15 13:07] LABS: Appearance,Urine Clear (Clear); Bilirubin,Urine Negative (Negative); Blood,Urine Negative (Negative); Color,Urine Yellow; Glucose,Urine (UA) Negative (Negative); Ketones,Urine 1+ (Negative); Leukocyte Esterase,Urine Negative (Negative); Mucus,Urine Few /hpf; Nitrite,Urine Negative (Negative); PH, Urine 6.5 (5.0-8.0); Protein,Urine 1+ (Negative); RBC,Urine <1 /hpf (0-5); Specific Gravity,Urine 1.012 (1.001-1.035); Squamous Epithelial Cell,Urine <1 /hpf (0-4); Urobilinogen,Urine <2.0 mg/dL (<2.0); WBC,Urine 2 /hpf (0-5)
[2022-06-15 13:20] LABS: Amphetamine Screen,Urine Not Detected (NotDetected); Barbiturate Screen,Urine Not Detected (NotDetected); Benzodiazepines Screen,Urine Not Detected (NotDetected); Cocaine Screen,Urine Not Detected (NotDetected); Methadone Screen, Urine Not Detected (NotDetected); Opiate Screen,Urine Not Detected (NotDetected); Oxycodone Screen, Urine Not Detected (NotDetected); Phencyclidine Screen,Urine Not Detected (NotDetected); Tricyclic Antidepressant,Urine Not Detected (NotDetected); Urn Cannabinoid Scrn Not Detected (NotDetected)
[2022-06-15] MEDS ORDERED: NALOXONE 0.4 MG/ML 1 ML VIAL IV PRN (13:34)
[2022-06-15] MEDS ORDERED: cloNIDine HCL 0.1 MG TAB PO STA (13:35)
[2022-06-15] MEDS: SODIUM CHLORIDE 0.9% 1,000 ML IV SCH (17:06)
--- NOTE | 2022-06-15 21:23 | P.HPIM ---
History of Present Illness H&P Date: 06/15/22 Chief Complaint: Chest heaviness Pt. is a 32-year-old male with a known history of daily alcohol use presents to ER with complaints of chest heaviness. Patient states that he has been having the anxious and chest heaviness started this morning around 10 AM and he has been constant since then. Denies any radiation of the pain. No associated nausea vomiting or diaphoresis. No abdominal pain. Patient is trying to quit alcohol. He has been drinking more than fifth of vodka daily for the past week. Patient does have prior history of DTs. No complaints of shortness of breath. No headache or dizziness. No leg swelling. No palpitations. Denies any family history of premature heart disease. Chest x-ray showed no acute cardiopulmonary process. EKG showed sinus rhythm with sinus arrhythmia. Laboratory pressure WBC 5.4 hemoglobin 15.1 and platelets 191 Sodium 140 potassium 3.5 chloride 102 bicarb is 23 BUN 9 and creatinine 0.65 blood sugar is 117 AST 113 ALT 71 alk phos 93 and troponin x1 negative. Lipase level 168. Urinalysis is negative for infection UDS negative and serum alcohol level is 196. Acute alcohol intoxication Chest heaviness likely due to severe anxiety. EKG and troponin x1 negative. Chest x-ray showed no acute process. Resolved now. Acute alcohol hepatitis History of alcohol withdrawal symptoms and DTs. Hypokalemia Daily alcohol abuse Daily smoking/vaping. DVT prophylaxis with heparin subcu Plan: Patient will be continued on IV hydration with normal saline continue to monitor for alcohol withdrawal symptoms. EKG and troponin x1 negative. Denies any complaints of chest heaviness now. Continue GI and DVT prophylaxis. Follow-up closely. Smoking cessation and alcohol abstinence has been counseled extensively. Past Medical History Past Medical History: No Reported History History of Any Multi-Drug Resistant Organisms: None Reported Past Surgical History: No Surgical Hx Reported Past Psychological History: No Psychological Hx Reported Smoking Status: Vaper Past Alcohol Use History: Abuse, Daily Past Drug Use History: None Reported Medications and Allergies Home Medications Medication Instructions Recorded Confirmed Type No Known Home Medications 09/29/17 06/15/22 History Allergies Allergy/AdvReac Type Severity Reaction Status Date / Time cat dander AdvReac Wheezing Verified 06/15/22 14:14 milk AdvReac Nausea & Verified 06/15/22 14:14 Vomiting & Diarrhea Physical Exam Vitals: Vital Signs Temp Pulse Resp BP Pulse Ox 06/15/22 17:00 78 16 139/88 97 06/15/22 13:30 80 16 150/96 97 06/15/22 12:30 94 24 170/106 98 06/15/22 12:00 105 H 22 161/113 98 06/15/22 11:30 91 20 170/120 98 06/15/22 10:46 98 F 89 20 179/110 100 Intake and Output 06/15/22 06/15/22 06/15/22 06:59 14:59 22:59 Other: Weight 54.431 kg Results CBC & Chem 7: 06/15/22 10:54 06/15/22 10:54 Labs: Abnormal Lab Results - Last 24 Hours (Table) 06/15/22 06/15/22 Range/Units 10:54 12:50 Creatinine 0.65 L (0.66-1.25) mg/dL Glucose 117 H (74-99) mg/dL AST 113 H (17-59) U/L ALT 71 H (4-49) U/L Urine Protein 1+ H (Negative) Urine Ketones 1+ H (Negative) Urine Mucus Few H (None) /hpf
[2022-06-16] MEDS: FAMOTIDINE 20 MG TAB PO SCH ×3 (00:30→21:11)
[2022-06-16] MEDS: chlordiazePOXIDE 25 MG CAP PO PRN ×2 (08:24→21:15)
[2022-06-16] MEDS: HEPARIN SODIUM,PORCINE/PF 5,000 UNIT/0.5 ML SYRINGE SQ SCH ×2 (08:24→21:11)
[2022-06-16 09:30] LABS: Basophils # (A) 0.03 X 10*3/uL (0.00-0.10); Basophils % (A) 0.7 %; Eosinophils # (A) 0.34 X 10*3/uL (0.04-0.35); Eosinophils % (A) 8.4 %; HCT 40.8 % (39.6-50.0); HGB 13.5 g/dL (13.0-17.0); Immature Grans, Automated 0 %; Lymphocytes # (A) 1.35 X 10*3/uL (0.90-5.00); Lymphocytes % (A) 33.3 %; MCH 31.8 pg (27.0-32.0); MCHC 33.1 g/dL (32.0-37.0); MCV 96.2 fL (80.0-97.0); Mean Platelet Volume 10.2 fL (9.5-12.2); Monocytes # (A) 0.34 X 10*3/uL (0.20-1.00); Monocytes % (A) 8.4 %; NRBC Per 100 WBC 0 /100 WBCS (0.0-0.0); Neutrophils % (A) 49.2 %; Platelet Count 166 X 10*3/uL (140-440); RBC 4.24 X 10*6/uL (4.40-5.60); RDW 12.8 % (11.5-14.5); WBC 4.06 X 10*3/uL (4.50-10.00)
[2022-06-16 09:32] LABS: Albumin 4.1 g/dL (3.8-4.9); Albumin/Globulin Ratio 1.86 (1.60-3.17); Anion Gap 17.1 mmol/L (10.00-18.00); BUN/Creat Ratio 16.13 Ratio (12.00-20.00); Blood Urea Nitrogen 12.9 mg/dL (9.0-27.0); Calcium 8.4 mg/dL (8.7-10.3); Carbon Dioxide 21.9 mmol/L (20.0-27.5); Globulin 2.2 g/dL (1.6-3.3); Non-African American GFR(CKD) 117.4 (60.0-200.0); Potassium 4.3 mmol/L (3.5-5.5); Total Bilirubin 1.3 mg/dL (0.30-1.20); Total Protein 6.3 g/dL (6.2-8.2)
[2022-06-16] MEDS: SODIUM CHLORIDE 0.9% 1,000 ML IV SCH ×3 (12:19→23:24)
--- NOTE | 2022-06-17 02:02 | P.PN ---
Subjective Progress Note Date: 06/16/22 Pt. is a 32-year-old male with a known history of daily alcohol use presents to ER with complaints of chest heaviness. Patient states that he has been having the anxious and chest heaviness started this morning around 10 AM and he has been constant since then. Denies any radiation of the pain. No associated nausea vomiting or diaphoresis. No abdominal pain. Patient is trying to quit alcohol. He has been drinking more than fifth of vodka daily for the past week. Patient does have prior history of DTs. No complaints of shortness of breath. No headache or dizziness. No leg swelling. No palpitations. Denies any family history of premature heart disease. Chest x-ray showed no acute cardiopulmonary process. EKG showed sinus rhythm with sinus arrhythmia. Laboratory pressure WBC 5.4 hemoglobin 15.1 and platelets 191 Sodium 140 potassium 3.5 chloride 102 bicarb is 23 BUN 9 and creatinine 0.65 blood sugar is 117 AST 113 ALT 71 alk phos 93 and troponin x1 negative. Lipase level 168. Urinaly sis is negative for infection UDS negative and serum alcohol level is 196. 06/16/2022 Patient is sitting in the bed. Awake alert and oriented. Feels very anxious and shaky. Still requiring Librium for alcohol withdrawal symptoms. No complaints of chest pain or heaviness. No nausea vomiting abdominal pain or diarrhea. Blood pressure is elevated with SBP in 140s. Patient is being current on IV hydration and Librium and Pepcid. Continued on alcohol withdrawal protocol. Laboratory data reviewed. Liver enzymes are trending down. Current medications reviewed. Objective - Vital Signs Vital signs: Vital Signs Temp 98.1 F 06/16/22 17:56 Pulse 88 06/16/22 17:56 Resp 18 06/16/22 17:56 BP 148/82 06/16/22 17:56 Pulse Ox 98 06/16/22 17:56 FiO2 Intake & Output 06/16/22 06/16/22 06/17/22 06:59 18:59 06:59 Weight 54.431 kg Other: Voiding Method Toilet # Voids 2 - Exam PHYSICAL EXAMINATION: Patient is lying in the bed comfortably, no acute distress, awake alert and oriented.. Shaky and tremulous HEENT: Normocephalic. Neck is supple. Pupils reactive. Nostrils clear. Oral cavity is moist. Neck reveals no JVD, carotid bruits, or thyromegaly. CHEST EXAMINATION: Trachea is central. Symmetrical expansion. Lung barba clear to auscultation and percussion. CARDIAC: Normal S1, S2 with no gallops. No murmurs ABDOMEN: Soft. Bowel sounds present. Nontender. No organomegaly. No abdominal bruits. Extremities: reveal no edema. No clubbing or cyanosis Neurologically awake, alert, oriented x3 with well-coordinated movements. No focal deficits noted Skin: No rash or skin lesions. Psychiatric: Coperative. Nonsuicidal, Musculoskeletal: No joint swelling or deformity. Normal range of motion. - Labs CBC & Chem 7: 06/16/22 05:16 06/16/22 05:16 Labs: Abnormal Lab Results - Last 24 Hours (Table) 06/16/22 06/16/22 Range/Units 05:16 05:16 WBC 4.06 L (4.50-10.00) X 10*3/uL RBC 4.24 L (4.40-5.60) X 10*6/uL Glucose 61 L (70-110) mg/dL Calcium 8.4 L (8.7-10.3) mg/dL Total Bilirubin 1.30 H (0.30-1.20) mg/dL AST 70 H (14-35) U/L ALT 56 H (10-49) U/L Assessment and Plan Assessment: Acute alcohol withdrawal symptoms Acute alcohol intoxication Chest heaviness likely due to severe anxiety. EKG and troponin x1 negative. Chest x-ray showed no acute process. Resolved now. Acute alcohol hepatitis History of alcohol withdrawal symptoms and DTs. Hypokalemia Daily alcohol abuse Daily smoking/vaping. DVT prophylaxis with heparin subcu Plan: Patient will be continued on IV hydration with normal saline continue to monitor for alcohol withdrawal symptoms. EKG and troponin x1 negative. Denies any complaints of chest heaviness now. Continue GI and DVT prophylaxis. Follow-up closely. Smoking cessation and alcohol abstinence has been counseled extensively. Time with Patient: Greater than 30
[2022-06-17] MEDS: FAMOTIDINE 20 MG TAB PO SCH ×2 (08:11→20:27)
[2022-06-17] MEDS: HEPARIN SODIUM,PORCINE/PF 5,000 UNIT/0.5 ML SYRINGE SQ SCH ×2 (08:11→20:27)
[2022-06-17 09:20] LABS: Basophils # (A) 0.03 X 10*3/uL (0.00-0.10); Basophils % (A) 0.9 %; Eosinophils # (A) 0.35 X 10*3/uL (0.04-0.35); Eosinophils % (A) 10.2 %; HCT 38.3 % (39.6-50.0); HGB 12.8 g/dL (13.0-17.0); Immature Grans, Automated 0.3 %; Lymphocytes # (A) 1.41 X 10*3/uL (0.90-5.00); MCH 31.9 pg (27.0-32.0); MCHC 33.4 g/dL (32.0-37.0); MCV 95.5 fL (80.0-97.0); Mean Platelet Volume 10.4 fL (9.5-12.2); Monocytes # (A) 0.39 X 10*3/uL (0.20-1.00); Monocytes % (A) 11.3 %; NRBC Per 100 WBC 0 /100 WBCS (0.0-0.0); Neutrophils # (A) 1.25 X 10*3/uL (1.80-7.70); Neutrophils % (A) 36.3 %; Platelet Count 144 X 10*3/uL (140-440); RBC 4.01 X 10*6/uL (4.40-5.60); RDW 12.3 % (11.5-14.5); WBC 3.44 X 10*3/uL (4.50-10.00)
[2022-06-17 10:54] LABS: African American GFR (CKD) 144.8 (60.0-200.0); Albumin 3.7 g/dL (3.8-4.9); Albumin/Globulin Ratio 1.78 (1.60-3.17); Anion Gap 7.7 mmol/L (10.00-18.00); BUN/Creat Ratio 16.3 Ratio (12.00-20.00); Blood Urea Nitrogen 11.2 mg/dL (9.0-27.0); Calcium 8.5 mg/dL (8.7-10.3); Carbon Dioxide 25.7 mmol/L (20.0-27.5); Globulin 2.1 g/dL (1.6-3.3); Total Bilirubin 0.6 mg/dL (0.30-1.20); Total Protein 5.8 g/dL (6.2-8.2)
[2022-06-17 11:06] VITALS: RESP 18
[2022-06-17] MEDS: chlordiazePOXIDE 25 MG CAP PO PRN (12:21)
[2022-06-17] MEDS: SODIUM CHLORIDE 0.9% 1,000 ML IV SCH ×2 (12:22→23:35)
--- NOTE | 2022-06-17 15:22 | P.PN ---
Subjective Progress Note Date: 06/17/22 Pt. is a 32-year-old male with a known history of daily alcohol use presents to ER with complaints of chest heaviness. Patient states that he has been having the anxious and chest heaviness started this morning around 10 AM and he has been constant since then. Denies any radiation of the pain. No associated nausea vomiting or diaphoresis. No abdominal pain. Patient is trying to quit alcohol. He has been drinking more than fifth of vodka daily for the past week. Patient does have prior history of DTs. No complaints of shortness of breath. No headache or dizziness. No leg swelling. No palpitations. Denies any family history of premature heart disease. Chest x-ray showed no acute cardiopulmonary process. EKG showed sinus rhythm with sinus arrhythmia. Laboratory pressure WBC 5.4 hemoglobin 15.1 and platelets 191 Sodium 140 potassium 3.5 chloride 102 bicarb is 23 BUN 9 and creatinine 0.65 b lood sugar is 117 AST 113 ALT 71 alk phos 93 and troponin x1 negative. Lipase level 168. Urinalysis is negative for infection UDS negative and serum alcohol level is 196. 06/16/2022 Patient is sitting in the bed. Awake alert and oriented. Feels very anxious and shaky. Still requiring Librium for alcohol withdrawal symptoms. No complaints of chest pain or heaviness. No nausea vomiting abdominal pain or diarrhea. Blood pressure is elevated with SBP in 140s. Patient is being current on IV hydration and Librium and Pepcid. Continued on alcohol withdrawal protocol. Laboratory data reviewed. Liver enzymes are trending down. 06/17/22. Patient seen and examined. Patient CIWA scores are improving. Still shaky. Denies any auditory or visual hallucinations. Vital signs stable REVIEW OF SYSTEMS: CONSTITUTIONAL: No fever, no malaise, no fatigue. HEENT: No recent visual problems or hearing problems. Denied any sore throat. CARDIOVASCULAR: No chest pain, orthopnea, PND, no palpitations, no syncope. PULMONARY: No shortness of breath, no cough, no hemoptysis. GASTROINTESTINAL: No diarrhea, no nausea, no vomiting, no abdominal pain. PHYSICAL EXAMINATION: GENERAL: The patient is alert and oriented x3, not in any acute distress. Well developed, well nourished. HEENT: Pupils are round and equally reacting to light. EOMI. No scleral icterus. No conjunctival pallor. Normocephalic, atraumatic. No pharyngeal erythema. No thyromegaly. CARDIOVASCULAR: S1 and S2 present. No murmurs, rubs, or gallops. PULMONARY: Chest is clear to auscultation, no wheezing or crackles. ABDOMEN: Soft, nontender, nondistended, normoactive bowel sounds. No palpable organomegaly. MUSCULOSKELETAL: No joint swelling or deformity. EXTREMITIES: No cyanosis, clubbing, or pedal edema. NEUROLOGICAL: Gross neurological examination did not reveal any focal deficits. SKIN: No rashes. Assessment and plan Acute alcohol withdrawal symptoms Acute alcohol intoxication Chest heaviness likely due to severe anxiety. EKG and troponin x1 negative. Chest x-ray showed no acute process. Resolved now. Acute alcohol hepatitis History of alcohol withdrawal symptoms and DTs. Hypokalemia Daily alcohol abuse Daily smoking/vaping. DVT prophylaxis with heparin subcu Plan: Continue patient on CIWA protocol Continue Librium according to CIWA protocol Continue GI and DVT prophylaxis. Follow-up closely. Smoking cessation and alcohol abstinence has been counseled extensively. Objective - Vital Signs Vital signs: Vital Signs Temp 98.1 F 06/17/22 11:05 Pulse 64 06/17/22 11:05 Resp 18 06/17/22 11:05 BP 125/77 06/17/22 11:05 Pulse Ox 99 06/17/22 11:05 FiO2 Intake & Output 06/16/22 06/17/22 06/17/22 18:59 06:59 18:59 Intake Total 500 Balance 500 Intake: Oral 500 Other: Voiding Method Toilet Toilet Toilet # Voids 2 2 - Labs CBC & Chem 7: 06/17/22 05:41 06/17/22 05:41 Labs: Abnormal Lab Results - Last 24 Hours (Table) 06/17/22 06/17/22 Range/Units 05:41 05:41 WBC 3.44 L (4.50-10.00) X 10*3/uL RBC 4.01 L (4.40-5.60) X 10*6/uL Hgb 12.8 L (13.0-17.0) g/dL Hct 38.3 L (39.6-50.0) % Neutrophils # 1.25 L (1.80-7.70) X 10*3/uL Anion Gap 7.70 L (10.00-18.00) mmol/L Calcium 8.5 L (8.7-10.3) mg/dL AST 48 H (14-35) U/L Total Protein 5.8 L (6.2-8.2) g/dL Albumin 3.7 L (3.8-4.9) g/dL
[2022-06-17 16:00] VITALS: BMI 18.8
[2022-06-18 06:22] VITALS: BP 125/78; PULSE 62; TEMP 97.7
[2022-06-18] MEDS: HEPARIN SODIUM,PORCINE/PF 5,000 UNIT/0.5 ML SYRINGE SQ SCH (08:19)
[2022-06-18] MEDS: FAMOTIDINE 20 MG TAB PO SCH (08:19)
[2022-06-18 09:08] LABS: Basophils # (A) 0.03 X 10*3/uL (0.00-0.10); Basophils % (A) 0.9 %; Eosinophils % (A) 8.6 %; HCT 38.5 % (39.6-50.0); HGB 12.5 g/dL (13.0-17.0); Immature Grans, Automated 0.3 %; Lymphocytes # (A) 1.17 X 10*3/uL (0.90-5.00); Lymphocytes % (A) 33.7 %; MCH 31.8 pg (27.0-32.0); MCHC 32.5 g/dL (32.0-37.0); Mean Platelet Volume 10.3 fL (9.5-12.2); Monocytes # (A) 0.32 X 10*3/uL (0.20-1.00); Monocytes % (A) 9.2 %; NRBC Per 100 WBC 0 /100 WBCS (0.0-0.0); Neutrophils # (A) 1.64 X 10*3/uL (1.80-7.70); Neutrophils % (A) 47.3 %; Platelet Count 140 X 10*3/uL (140-440); RBC 3.93 X 10*6/uL (4.40-5.60); RDW 12.3 % (11.5-14.5); WBC 3.47 X 10*3/uL (4.50-10.00)
[2022-06-18 09:43] LABS: Anion Gap 9.4 mmol/L (10.00-18.00); BUN/Creat Ratio 11.13 Ratio (12.00-20.00); Blood Urea Nitrogen 8.9 mg/dL (9.0-27.0); Calcium 8.2 mg/dL (8.7-10.3); Carbon Dioxide 25.6 mmol/L (20.0-27.5); Non-African American GFR(CKD) 117.4 (60.0-200.0); Potassium 4.2 mmol/L (3.5-5.5)
[2022-06-18] MEDS: SODIUM CHLORIDE 0.9% 1,000 ML IV SCH (10:09)
--- NOTE | 2022-06-18 11:31 | P.DS ---
Providers Date of admission: 06/15/22 13:35 Expected date of discharge: 06/18/22 Attending physician: Napoleon Phillips Primary care physician: Stated None Hospital Course: Discharge diagnoses; Acute alcohol withdrawal symptoms Acute alcohol intoxication Chest heaviness likely due to severe anxiety. EKG and troponin x1 negative. Chest x-ray showed no acute process. Resolved now. Acute alcohol hepatitis History of alcohol withdrawal symptoms and DTs. Hypokalemia Daily alcohol abuse Daily smoking/vaping. Plan: Patient CIWA scores continued to be low Smoking cessation and alcohol abstinence has been counseled extensively. Outpatient follow-up with PCP and alcohol abstinence programs Hospital course; Pt. is a 32-year-old male with a known history of daily alcohol use presents to ER with complaints of chest heaviness. Patient states that he has been having the anxious and chest heaviness started this morning around 10 AM and he has been constant since then. Denies any radiation of the pain. No associated nausea vomiting or diaphoresis. No abdominal pain. Patient is trying to quit alcohol. He has been drinking more than fifth of vodka daily for the past week. Patient does have prior history of DTs. No complaints of shortness of breath. No headache or dizziness. No leg swelling. No palpitations. Denies any family history of premature heart disease. Chest x-ray showed no acute cardiopulmonary process. EKG showed sinus rhythm with sinus arrhythmia. Laboratory pressure WBC 5.4 hemoglobin 15.1 and platelets 191 Sodium 140 potassium 3.5 chloride 102 bicarb is 23 BUN 9 and creatinine 0.65 blood sugar is 117 AST 113 ALT 71 alk phos 93 and troponin x1 negative. Lipase level 168. Urinalysis is negative for infection UDS negative and serum alcohol level is 196. 06/16/2022 Patient is sitting in the bed. Awake alert and oriented. Feels very anxious and shaky. Still requiring Librium for alcohol withdrawal symptoms. No complaints of chest pain or heaviness. No nausea vomiting abdominal pain or diarrhea. Blood pressure is elevated with SBP in 140s. Patient is being current on IV hydration and Librium and Pepcid. Continued on alcohol withdrawal protocol. Laboratory data reviewed. Liver enzymes are trending down. 06/17/22. Patient seen and examined. Patient CIWA scores are improving. Still shaky. Denies any auditory or visual hallucinations. Vital signs stable 06/18/22. CIWA scores continued to be low. No acute issues overnight. Patient to follow up outpatient with PCP. PHYSICAL EXAMINATION: GENERAL: The patient is alert and oriented x3, not in any acute distress. Well developed, well nourished. HEENT: Pupils are round and equally reacting to light. EOMI. No scleral icterus. No conjunctival pallor. Normocephalic, atraumatic. No pharyngeal erythema. No thyromegaly. CARDIOVASCULAR: S1 and S2 present. No murmurs, rubs, or gallops. PULMONARY: Chest is clear to auscultation, no wheezing or crackles. ABDOMEN: Soft, nontender, nondistended, normoactive bowel sounds. No palpable organomegaly. MUSCULOSKELETAL: No joint swelling or deformity. EXTREMITIES: No cyanosis, clubbing, or pedal edema. NEUROLOGICAL: Gross neurological examination did not reveal any focal deficits. SKIN: No rashes. Patient Condition at Discharge: Good Plan - Discharge Summary Discharge Rx Participant: Yes New Discharge Prescriptions: No Action No Known Home Medications Discharge Medication List No Known Home Medications 09/29/17 [History] Follow up Appointment(s)/Referral(s): None,Stated [Primary Care Provider] - 1-2 days Discharge/Stand Alone Forms: AA Meetings [facility], Community Resources, Help In The Home, Outpatient Counseling, In Substance Abuse Facilities, Personal Concaver
== END 2022-06-18 12:21 | disposition home or self-care (01) | DRG 433 ==
LOC: EC 10:42 → 5NMEDONC 13:35
PROVIDERS: ADMIT Internal Medicine; ATTEND Internal Medicine
PROC: HZ2ZZZZ Detoxification Services for Substance Abuse Treatment (ICD-10-PCS; principal; 2022-06-15)
DX: K70.10 Alcoholic hepatitis without ascites (principal); F10.239 Alcohol dependence with withdrawal, unspecified; E87.6 Hypokalemia; J30.81 Allergic rhinitis due to animal (cat) (dog) hair and dander; Y90.6 Blood alcohol level of 120-199 mg/100 ml; F10.229 Alcohol dependence with intoxication, unspecified; F41.9 Anxiety disorder, unspecified; Z91.011 Allergy to milk products; F17.290 Nicotine dependence, other tobacco product, uncomplicated
CPT/HCPCS: 36415; 71046; 80048; 80053; 80306; 80320; 81001; 83690; 83735; 84484; 85025; 85610; 85730; 93005; 99285

== ENCOUNTER 2022-07-28 16:53 | Emergency (ER) | payer OTHER ==
[2022-07-28 17:02] VITALS: TEMP 98
[2022-07-28] MEDS ORDERED: cefTRIAXone 250 MG VIAL IM STA (17:05)
[2022-07-28] MEDS ORDERED: DOXYCYCLINE 100 MG CAP PO STA (17:09)
[2022-07-28 18:03] LABS: Appearance,Urine Cloudy (Clear); Bilirubin,Urine Negative (Negative); Blood,Urine Trace (Negative); Color,Urine Yellow; Glucose,Urine (UA) Negative (Negative); Ketones,Urine Negative (Negative); Leukocyte Esterase,Urine Large (Negative); Mucus,Urine Rare /hpf; Nitrite,Urine Negative (Negative); PH, Urine 5.5 (5.0-8.0); Protein,Urine Trace (Negative); RBC,Urine 15 /hpf (0-5); Specific Gravity,Urine 1.022 (1.001-1.035); Urobilinogen,Urine <2.0 mg/dL (<2.0); WBC,Urine >182 /hpf (0-5)
[2022-07-28] MEDS ORDERED: CIPROFLOXACIN HCL 500 MG TAB PO STA (18:37)
--- NOTE | 2022-07-28 18:41 | ED ---
General Adult HPI - General Chief complaint: Urogenital Stated complaint: penis discharge Time Seen by Provider: 07/28/22 17:05 Source: patient Mode of arrival: ambulatory Limitations: no limitations - History of Present Illness Initial comments: Patient is a 32-year-old male presents to the emergency department with a chief complaint of yellow penile discharge. Patient states he unprotected sexual intercourse with new partner on Thursday and began developing symptoms on . Patient reports burning with urination and yellow discharge from penis. He denies lesions on the penis and groin, blood in the urine, testicular pain, abdominal pain, nausea, vomiting, fever, chills. He does report history of urinary tract infection. - Related Data Previous Rx's Medication Instructions Recorded Ciprofloxacin HCl [Cipro] 500 mg PO BID 10 Days #20 tab 07/28/22 Doxycycline [Vibramycin] 100 mg PO BID 7 Days #14 capsule 07/28/22 Ibuprofen [Motrin] 800 mg PO Q6HR #30 tab 07/28/22 Allergies Allergy/AdvReac Type Severity Reaction Status Date / Time cat dander AdvReac Wheezing Verified 07/28/22 17:54 milk AdvReac Nausea & Verified 07/28/22 17:54 Vomiting & Diarrhea Review of Systems ROS Statement: Those systems with pertinent positive or pertinent negative responses have been documented in the HPI. ROS Other: All systems not noted in ROS Statement are negative. Past Medical History Past Medical History: No Reported History History of Any Multi-Drug Resistant Organisms: None Reported Past Surgical History: No Surgical Hx Reported Past Psychological History: No Psychological Hx Reported Smoking Status: Vaper Past Alcohol Use History: Abuse, Daily Past Drug Use History: None Reported General Exam Limitations: no limitations General appearance: alert, in no apparent distress Respiratory exam: Present: normal lung sounds bilaterally. Absent: respiratory distress, wheezes, rales, rhonchi, stridor Cardiovascular Exam: Present: regular rate, normal rhythm, normal heart sounds. Absent: systolic murmur, diastolic murmur, rubs, gallop, clicks GI/Abdominal exam: Present: soft, normal bowel sounds. Absent: distended, tenderness, guarding, rebound, rigid Neurological exam: Present: alert, oriented X3, CN II-XII intact Psychiatric exam: Present: normal affect, normal mood Skin exam: Present: warm, dry, intact, normal color. Absent: rash Course Vital Signs 07/28/22 07/28/22 16:59 19:01 Temperature 98 F Pulse Rate 79 85 Respiratory 16 18 Rate Blood Pressure 151/99 143/90 O2 Sat by Pulse 98 99 Oximetry Medical Decision Making - Medical Decision Making This is a 32-year-old male presenting with gynecological infection. Patient tested for chlamydia, gonorrhea, syphilis, HIV. Urinalysis reveals evidence of infection. Patient reports symptoms beginning shortly after unprotected sex. With this and in the setting of urinary tract infection history, will treat patient for possible urinary tract infection. Patient given Rocephin IM and doxycycline. He was also given first dose of ciprofloxacin. He will be sent home with ciprofloxacin and doxycycline prescription. Return parameters discussed.' Dr. Davenport is my attending. - Lab Data Lab Results 07/28/22 Range/Units 17:16 Urine Color Yellow Urine Appearance Cloudy (Clear) Urine pH 5.5 (5.0-8.0) Ur Specific [place] 1.022 (1.001-1.035) Urine Protein Trace H (Negative) Urine Glucose (UA) Negative (Negative) Urine Ketones Negative (Negative) Urine Blood Trace H (Negative) Urine Nitrite Negative (Negative) Urine Bilirubin Negative (Negative) Urine Urobilinogen <2.0 (<2.0) mg/dL Ur Leukocyte Esterase Large H (Negative) Urine RBC 15 H (0-5) /hpf Urine WBC >182 H (0-5) /hpf Urine WBC Clumps Few H (None) /hpf Urine Mucus Rare H (None) /hpf Disposition Clinical Impression: Penile discharge, Dysuria Disposition: HOME SELF-CARE Condition: Good Instructions (If sedation given, give patient instructions): Sexually Transmitted Diseases (ED), Urinary Tract Infection in Men (ED) Additional Instructions: Take medication as directed. You have been treated for possiblw gonorrhea. Your 2 prescriptions sent to the pharmacy today will treat possible chlamydia and/or urinary tract infection. You have also been tested for syphilis and HIV. You will be called with any positive results. Return to the emergency department if you experience new, concerning, or worsening symptoms. Prescriptions: Ciprofloxacin HCl [Cipro] 500 mg PO BID 10 Days #20 tab Ibuprofen [Motrin] 800 mg PO Q6HR #30 tab Doxycycline [Vibramycin] 100 mg PO BID 7 Days #14 capsule Is patient prescribed a controlled substance at d/c from ED?: No Referrals: None,Stated [Primary Care Provider] - 1-2 days Time of Disposition: 18:41
[2022-07-28 19:02] VITALS: BP 143/90; PULSE 85; RESP 18
[2022-07-30 13:02] LABS: C. trachomatis,PCR Positive (Neg,Equiv); Chlamydia trachomatis Source Urine; N. gonorrhoeae,PCR Positive (Neg,Equiv); Neisseria Source Urine
== END 2022-07-28 19:02 | disposition home or self-care (01) ==
LOC: EC 16:53
DX: R36.9 Urethral discharge, unspecified (principal); F17.290 Nicotine dependence, other tobacco product, uncomplicated; R30.0 Dysuria; J30.81 Allergic rhinitis due to animal (cat) (dog) hair and dander; Z91.011 Allergy to milk products
CPT/HCPCS: 99283; 36415; 81001; 87491; 87591; 86780; 87086; 87390; 96372; J0696

== ENCOUNTER 2023-03-18 10:45 | Emergency (ER) | payer OTHER ==
[2023-03-18 10:54] VITALS: RESP 18; TEMP 97.7
[2023-03-18] MEDS ORDERED: THIAMINE 100 MG/ML 2 ML VIAL IM STA (11:07)
[2023-03-18] MEDS ORDERED: SODIUM CHLORIDE 0.9% 1,000 ML IV ONE (11:07)
[2023-03-18] MEDS ORDERED: SODIUM CHLORIDE 0.9% 500 ML 500 ML IV ONE (11:07)
[2023-03-18 11:47] LABS: ALT 177 U/L (4-49); African American GFR (CKD) >90 (>60 ml/min/1.73 sqM); Albumin 3.7 g/dL (3.5-5.0); Anion Gap 10 mmol/L; Blood Urea Nitrogen 8 mg/dL (9-20); Calcium 7.8 mg/dL (8.4-10.2); Carbon Dioxide 27 mmol/L (22-30); Chloride 109 mmol/L (98-107); Glucose 89 mg/dL (74-99); Non-African American GFR(CKD) >90 (>60 ml/min/1.73 sqM); Sodium 146 mmol/L (137-145); Total Bilirubin 0.6 mg/dL (0.2-1.3); Total Protein 6.4 g/dL (6.3-8.2)
[2023-03-18 11:51] LABS: HCT 40.2 % (39.0-53.0); HGB 13.2 gm/dL (13.0-17.5); MCHC 32.9 g/dL (31.0-37.0); MCV 94.2 fL (80.0-100.0); Mean Platelet Volume 7.9; Platelet Count 150 k/uL (150-450); RBC 4.27 m/uL (4.30-5.90); WBC 2.8 k/uL (3.8-10.6)
[2023-03-18 11:55] LABS: Magnesium 1.7 mg/dL (1.6-2.3); Potassium 3.9 mmol/L (3.5-5.1)
[2023-03-18 11:56] LABS: AST 277 U/L (17-59); Alkaline Phosphatase 39 U/L (38-126)
--- NOTE | 2023-03-18 12:26 | ED ---
Alcohol HPI - General Chief Complaint: Alcohol Stated Complaint: ETOH Time Seen by Provider: 03/18/23 10:48 Source: patient, EMS, RN notes reviewed Mode of arrival: EMS Limitations: no limitations - History of Present Illness Initial Comments: 33-year-old male presents emergency Department from [place] for evaluation of alcohol intoxication. Patient was going to rehab today. Patient states that they felt he was too intoxicated and sent here for evaluation. Patient has no complaints denies headache dizziness woke weakness nausea vomiting. Patient states his last drink was this morning he states he drinks at least a fifth a day. Patient denies any other associated symptoms denies being suicidal. - Related Data Previous Rx's Medication Instructions Recorded Ciprofloxacin HCl [Cipro] 500 mg PO BID 10 Days #20 tab 07/28/22 Doxycycline [Vibramycin] 100 mg PO BID 7 Days #14 capsule 07/28/22 Ibuprofen [Motrin] 800 mg PO Q6HR #30 tab 07/28/22 Allergies Allergy/AdvReac Type Severity Reaction Status Date / Time cat dander AdvReac Wheezing Verified 03/18/23 10:55 milk AdvReac Nausea & Verified 03/18/23 10:55 Vomiting & Diarrhea Review of Systems ROS Statement: Those systems with pertinent positive or pertinent negative responses have been documented in the HPI. ROS Other: All systems not noted in ROS Statement are negative. Past Medical History Past Medical History: No Reported History History of Any Multi-Drug Resistant Organisms: None Reported Past Surgical History: No Surgical Hx Reported Past Psychological History: Anxiety Smoking Status: Vaper Past Alcohol Use History: Abuse, Daily, Heavy Past Drug Use History: Cocaine General Exam Limitations: no limitations General appearance: alert, in no apparent distress Head exam: Present: atraumatic, normocephalic, normal inspection Eye exam: Present: normal appearance, PERRL, EOMI. Absent: scleral icterus, conjunctival injection, periorbital swelling ENT exam: Present: normal exam, normal oropharynx, mucous membranes moist Neck exam: Present: normal inspection, full ROM. Absent: tenderness, meningismus, lymphadenopathy Respiratory exam: Present: normal lung sounds bilaterally. Absent: respiratory distress, wheezes, rales, rhonchi, stridor Cardiovascular Exam: Present: regular rate, normal rhythm, normal heart sounds. Absent: systolic murmur, diastolic murmur, rubs, gallop, clicks GI/Abdominal exam: Present: soft, normal bowel sounds. Absent: distended, tenderness, guarding, rebound, rigid Neurological exam: Present: alert, oriented X3 Skin exam: Present: warm, dry, intact, normal color. Absent: rash Course Vital Signs 03/18/23 10:47 Temperature 97.7 F Pulse Rate 77 Respiratory 18 Rate Blood Pressure 147/90 O2 Sat by Pulse 99 Oximetry Medical Decision Making - Medical Decision Making Was pt. sent in by a medical professional or institution (MINISTERIO Barker, COUNT ROOM CLERK, urgent care, hospital, or retirement...) When possible be specific @ -[place] Did you speak to anyone other than the patient for history (EMS, parent, family, police, friend...)? What history was obtained from this source @ -No Did you review nursing and triage notes (agree or disagree)? Why? @ -I reviewed and agree with nursing and triage notes Were old charts reviewed (outside hosp., previous admission, EMS record, old EKG, old radiological studies, urgent care reports/EKG's, retirement records)? Report findings @ -No old charts were reviewed Differential Diagnosis (chest pain, altered mental status, abdominal pain women, abdominal pain men, vaginal bleeding, weakness, fever, dyspnea, syncope, headache, dizziness, GI bleed, back pain, seizure, CVA, palpatations, mental health, musculoskeletal)? @ -Alcohol abuse, alcohol intoxication, dehydration, drug abuse EKG interpreted by me (3pts min.). @ -None X-rays interpreted by me (1pt min.). @ -None done CT interpreted by me (1pt min.). @ -None done U/S interpreted by me (1pt. min.). @ -None done What testing was considered but not performed or refused? (CT, X-rays, U/S, labs)? Why? @ -None What meds were considered but not given or refused? Why? @ -None Did you discuss the management of the patient with other professionals ( professionals i.e. MINISTERIO Barker, COUNT ROOM CLERK, lab, RT, psych nurse, social secretary, tanker truck driver, teacher, space officer, high risk case manager)? Give summary @ -No Was smoking cessation discussed for >3mins.? @ -No Was critical care preformed (if so, how long)? @ -No Were there social determinants of health that impacted care today? How? (Homelessness, low income, unemployed, alcoholism, drug addiction, transpo rtation, low edu. Level, literacy, decrease access to med. care, nursing home, rehab)? @ -No Was there de-escalation of care discussed even if they declined (Discuss DNR or withdrawal of care, Hospice)? DNR status @ -No What co-morbidities impacted this encounter? (DM, HTN, Smoking, COPD, CAD, Cancer, CVA, ARF, Chemo, Hep., AIDS, mental health diagnosis, sleep apnea, morbid obesity)? @ -Alcohol abuse Was patient admitted / discharged? Hospital course, mention meds given and route, prescriptions, significant lab abnormalities, going to OR and other pertinent info. @ -Discharge patient is awake alert and orientated patient is able to ambulate with no difficulty parameters show mild alcoholic hepatitis patient will be discharged back to [place] in stable condition. Undiagnosed new problem with uncertain prognosis? @ -No Drug Therapy requiring intensive monitoring for toxicity (Heparin, Nitro, Insulin, Cardizem)? @ -No Were any procedures done? @ -No Diagnosis/symptom? @ -Alcohol abuse, alcohol intoxication Acute, or Chronic, or Acute on Chronic? @ -Acute on chronic Uncomplicated (without systemic symptoms) or Complicated (systemic symptoms)? @ -Uncomplicated Side effects of treatment? @ -No Exacerbation, Progression, or Severe Exacerbation? @ -No Poses a threat to life or bodily function? How? (Chest pain, [place], [place], pneumonia, PE, COPD, DKA, ARF, appy, cholecystitis, CVA, Diverticulitis, Homicidal, Suicidal, threat to staff... and all critical care pts) @ -No - Lab Data Result diagrams: 03/18/23 11:15 03/18/23 11:15 Lab Results 03/18/23 03/18/23 Range/Units 11:15 11:15 WBC 2.8 L (3.8-10.6) k/uL RBC 4.27 L (4.30-5.90) m/uL Hgb 13.2 (13.0-17.5) gm/dL Hct 40.2 (39.0-53.0) % MCV 94.2 (80.0-100.0) fL MCH 31.0 (25.0-35.0) pg MCHC 32.9 (31.0-37.0) g/dL RDW 13.0 (11.5-15.5) % Plt Count 150 (150-450) k/uL MPV 7.9 Sodium 146 H (137-145) mmol/L Potassium 3.9 (3.5-5.1) mmol/L Chloride 109 H (98-107) mmol/L Carbon Dioxide 27 (22-30) mmol/L Anion Gap 10 mmol/L BUN 8 L (9-20) mg/dL Creatinine 0.55 L (0.66-1.25) mg/dL Est GFR (CKD-EPI)AfAm >90 (>60 ml/min/1.73 sqM) Est GFR (CKD-EPI)NonAf >90 (>60 ml/min/1.73 sqM) Glucose 89 (74-99) mg/dL Calcium 7.8 L (8.4-10.2) mg/dL Magnesium 1.7 (1.6-2.3) mg/dL Total Bilirubin 0.6 (0.2-1.3) mg/dL AST 277 H (17-59) U/L ALT 177 H (4-49) U/L Alkaline Phosphatase 39 (38-126) U/L Total Protein 6.4 (6.3-8.2) g/dL Albumin 3.7 (3.5-5.0) g/dL Disposition Clinical Impression: Alcohol intoxication, Alcohol abuse Disposition: HOME SELF-CARE Condition: Stable Instructions (If sedation given, give patient instructions): Alcohol Intoxication (ED) Additional Instructions: Please return to the Emergency Department if symptoms worsen or any other concerns. Is patient prescribed a controlled substance at d/c from ED?: No Referrals: Carlitos Rivera MD [Primary Care Provider] - 1-2 days Time of Disposition: 12:40
[2023-03-18 12:49] LABS: Lymphocytes # (M) 1.12 k/uL (1.0-4.8); Monocytes # (M) 0.31 k/uL (0-1.0); Neutrophils # (M) 1.18 k/uL (1.3-7.7); Neutrophils % (M) 42 %; Nucleated Red Blood Cells 0 /100 WBC (0-0); RBC Morphology Normal; Total Cells Counted 100
[2023-03-18 13:19] VITALS: BP 132/82; PULSE 74
== END 2023-03-18 13:19 | disposition home or self-care (01) ==
LOC: EC 10:45
DX: F10.129 Alcohol abuse with intoxication, unspecified (principal); Z86.59 Personal history of other mental and behavioral disorders; F17.290 Nicotine dependence, other tobacco product, uncomplicated; Z91.011 Allergy to milk products; Z88.8 Allergy status to other drugs, medicaments and biological substances
CPT/HCPCS: 36415; 80053; 83735; 85025; 99284; 96360; 96361; 96372; J3411

== ENCOUNTER 2023-04-11 12:43 | Emergency (ER) | payer OTHER ==
[2023-04-11 12:57] VITALS: RESP 16
--- NOTE | 2023-04-11 13:37 | ED ---
General Adult HPI - General Chief complaint: Dental/Oral Stated complaint: Jaw Pain Time Seen by Provider: 04/11/23 13:20 Source: patient, RN notes reviewed Mode of arrival: ambulatory Limitations: no limitations - History of Present Illness Initial comments: Patient is a 33-year-old male with past medical history remarkable for previous alcohol and cocaine use presents emergency department complaint of right-sided dental pain. States it has been a progressive process for years but seems to be worse over the last week or so. States he is having radiating pain from both the upper and lower teeth on the right side towards the back of his jaw. Denies any swelling inside the mouth. Denies any fevers. Denies any difficulty breathing. Denies any difficulty swallowing. Has no other acute complaints at this time. Has not seen a dentist in a long time per patient. Presents for further evaluation at this time. - Related Data Previous Rx's Medication Instructions Recorded Ciprofloxacin HCl [Cipro] 500 mg PO BID 10 Days #20 tab 07/28/22 Doxycycline [Vibramycin] 100 mg PO BID 7 Days #14 capsule 07/28/22 Ibuprofen [Motrin] 800 mg PO Q6HR #30 tab 07/28/22 Amoxic-Pot Clav 875-125Mg 1 tab PO Q12HR 10 Days #20 tab 04/11/23 [Augmentin 875-125] Allergies Allergy/AdvReac Type Severity Reaction Status Date / Time cat dander AdvReac Wheezing Verified 04/11/23 12:57 milk AdvReac Nausea & Verified 04/11/23 12:57 Vomiting & Diarrhea Review of Systems ROS Statement: Those systems with pertinent positive or pertinent negative responses have been documented in the HPI. Review of Systems: CONST: Denies fever EYES: Denies blurry vision ENT: Endorses tooth pain C/V: Denies Chest pain RESP: Denies shortness of breath GI: Denies abdominal pain : Denies dysuria SKIN: Denies rash. MSK: Denies joint pain. NEURO: Denies headache ROS Other: All systems not noted in ROS Statement are negative. Past Medical History Past Medical History: No Reported History History of Any Multi-Drug Resistant Organisms: None Reported Past Surgical History: No Surgical Hx Reported Past Psychological History: Anxiety Smoking Status: Vaper Past Alcohol Use History: Abuse, Daily, Heavy Past Drug Use History: Cocaine General Exam - General Exam Comments Initial Comments: General: Appears in no acute distress. HEAD: Normal with no signs of head trauma. EYES: EOMI. ENT: Hearing grossly intact. Patient has numerous dental caries throughout his mouth. Numerous located in the posterior right upper and lower teeth. No evidence of periapical abscess at this time. Mild erythema of the gumline. No tongue swelling. No floor the mouth swelling. Posterior oropharynx within normal limits. Uvula midline. No stridor. Tolerating oral secretions. RESPIRATORY: No respiratory distress. No wheezing. No difficulty in breathing. No hypoxia. C/V: Regular rate and rhythm. ABD: Abdomen is nondistended. EXT: No obvious deformity. SKIN: No rashes or lesions observed on exposed skin. NEURO: Alert and oriented. Limitations: no limitations Course Vital Signs 04/11/23 12:54 Temperature 98.7 F Pulse Rate 65 Respiratory 16 Rate Blood Pressure 146/87 O2 Sat by Pulse 99 Oximetry Medical Decision Making - Medical Decision Making Was pt. sent in by a medical professional or institution (, PA, DIRECTOR BUSINESS DEVELOPMENT, urgent care, hospital, or alf...) When possible be specific @ -No Did you speak to anyone other than the patient for history (EMS, parent, family, police, friend...)? What history was obtained from this source @ -No Did you review nursing and triage notes (agree or disagree)? Why? @ -I reviewed and agree with nursing and triage notes Were old charts reviewed (outside hosp., previous admission, EMS record, old EKG, old radiological studies, urgent care reports/EKG's, alf records)? Report findings @ -No old charts were reviewed Differential Diagnosis (chest pain, altered mental status, abdominal pain women, abdominal pain men, vaginal bleeding, weakness, fever, dyspnea, syncope, headache, dizziness, GI bleed, back pain, seizure, CVA, palpatations, mental health, musculoskeletal)? @ -Tooth infection, dental caries, toothache. Tj angina. This list is not all inclusive. EKG interpreted by me (3pts min.). @ -As above X-rays interpreted by me (1pt min.). @ -None done CT interpreted by me (1pt min.). @ -None done U/S interpreted by me (1pt. min.). @ -None done What testing was considered but not performed or refused? (CT, X-rays, U/S, labs)? Why? @ -None What meds were considered but not given or refused? Why? @ -None Did you discuss the management of the patient with other professionals (professionals i.e. , PA, DIRECTOR BUSINESS DEVELOPMENT, lab, RT, psych nurse, social secretary, software test technician, teacher, senior administrative services officer, nurse case manager)? Give summary @ -No Was smoking cessation discussed for >3mins.? @ -No Was critical care preformed (if so, how long)? @ -No Were there social determinants of health that impacted care today? How? (Homelessness, low income, unemployed, alcoholism, drug addiction, transportation, low edu. Level, literacy, decrease access to med. care, half-way, rehab)? @ -No Was there de-escalation of care discussed even if they declined (Discuss DNR or withdrawal of care, Hospice)? DNR status @ -No What co-morbidities impacted this encounter? (DM, HTN, Smoking, COPD, CAD, Ca ncer, CVA, ARF, Chemo, Hep., AIDS, mental health diagnosis, sleep apnea, morbid obesity)? @ -None Was patient admitted / discharged? Hospital course, mention meds given and route, prescriptions, significant lab abnormalities, going to OR and other pertinent info. @ -Based on the patient's presentation and physical exam, I'm concerned for wh at likely appears to be a chronic dental pain patient as he has numerous caries without any obvious signs of acute infection. Presents with more acute pain. No evidence of Tj angina or other systemic infectious etiology at this time. I did discuss this with the patient. I do not believe that imaging is warranted at this time. She is having no issues with eating and no issues with breathing. She recently moved and does not have a dentist. I recommend follow- up with a dentist. Patient will be given a dose of steroids as well as pain medications and started on antibiotics. He will receive follow-up information. Patient was in agreement with this plan. Strict return precautions discussed. I will provide the patient with a prescription for Augmentin. I instructed the patient to follow up with their PCP in the next 1-3 days. I provided contact information for follow up with [facility]. I explained that the patient should return to the emergency department if they experience any worsening symptoms. Strict return precautions were discussed with the patient. The patient expressed understanding of these instructions. I answered all questions that the patient had. The patient was discharged home in good condition with their prescriptions and follow up information. Undiagnosed new problem with uncertain prognosis? @ -No Drug Therapy requiring intensive monitoring for toxicity (Heparin, Nitro, Insulin, Cardizem)? @ -No Were any procedures done? @ -No Diagnosis/symptom? @ -Tooth pain, dental caries Acute, or Chronic, or Acute on Chronic? @ -Acute on chronic Uncomplicated (without systemic symptoms) or Complicated (systemic symptoms)? @ -Complicated Side effects of treatment? @ -No Exacerbation, Progression, or Severe Exacerbation? @ -No Poses a threat to life or bodily function? How? (Chest pain, [place], [place], pneumonia, PE, COPD, DKA, ARF, appy, cholecystitis, CVA, Diverticulitis, Homicidal, Suicidal, threat to staff... and all critical care pts) @ -No Disposition Clinical Impression: Tooth pain, Dental caries Disposition: HOME SELF-CARE Condition: Good Instructions (If sedation given, give patient instructions): Toothache (ED) Prescriptions: Amoxic-Pot Clav 875-125Mg [Augmentin 875-125] 1 tab PO Q12HR 10 Days #20 tab Is patient prescribed a controlled substance at d/c from ED?: No Referrals: Carlitos Rivera MD [Primary Care Provider] - 1-2 days Tristan Overton DDS [STAFF PHYSICIAN] - 1-2 days Time of Disposition: 13:34
[2023-04-11] MEDS ORDERED: ACET/COD 300 MG/30 MG STARTER PACK 6 TAB BTL PO STA (13:38)
[2023-04-11] MEDS ORDERED: AMOXIC-POT CLAV 875-125MG 1 EACH TAB PO STA (13:38)
[2023-04-11] MEDS ORDERED: DEXAMETHASONE SOD PHOSPHATE 4 MG/ML 1 ML VIAL IM STA (13:38)
[2023-04-11] MEDS ORDERED: HYDROcodone/APAP 5-325MG 1 EACH TAB PO STA (13:38)
[2023-04-11 13:53] VITALS: BP 134/82; PULSE 72; TEMP 98.4
== END 2023-04-11 13:53 | disposition home or self-care (01) ==
LOC: EC 12:43
DX: K02.9 Dental caries, unspecified (principal); F14.10 Cocaine abuse, uncomplicated; F12.90 Cannabis use, unspecified, uncomplicated; Z86.59 Personal history of other mental and behavioral disorders; Z91.011 Allergy to milk products; Z88.8 Allergy status to other drugs, medicaments and biological substances
CPT/HCPCS: 99283; 96372; J1100

== ENCOUNTER 2023-11-22 13:46 | Observation (INO) | payer OTHER ==
--- NOTE | 2023-11-22 14:32 | ED ---
Psych HPI - General Chief Complaint: Psychiatric Symptoms Stated Complaint: Mental Health/Alcoholism Time Seen by Provider: 11/22/23 13:58 Source: patient, RN notes reviewed Mode of arrival: ambulatory Limitations: no limitations - History of Present Illness Initial Comments: 33-year-old male presents emergency department with chief complaint of alcohol abuse, depression, suicidal ideation. Patient states he drank just prior to arrival. Patient states he does get withdrawal symptoms he states he has a drink at work to stop his symptoms. Patient states that he is depressed and states he is suicidal because he feels that he wants to harm self to get help. Patient denies any significant URI symptoms but does not have a fever he states he does have mild congestion but is chronic he denies chest pain no localized abdominal pain. - Related Data Home Medications Medication Instructions Recorded Confirmed No Known Home Medications 11/22/23 11/22/23 Allergies Allergy/AdvReac Type Severity Reaction Status Date / Time cat dander AdvReac Wheezing Verified 11/22/23 15:19 milk AdvReac Nausea & Verified 11/22/23 15:19 Vomiting & Diarrhea Review of Systems ROS Statement: Those systems with pertinent positive or pertinent negative responses have been documented in the HPI. ROS Other: All systems not noted in ROS Statement are negative. Past Medical History Past Medical History: No Reported History History of Any Multi-Drug Resistant Organisms: None Reported Past Surgical History: No Surgical Hx Reported Past Psychological History: Anxiety Smoking Status: Vaper Past Alcohol Use History: Abuse, Daily, Heavy Past Drug Use History: Cocaine General Exam Limitations: no limitations General appearance: alert, in no apparent distress Head exam: Present: atraumatic, normocephalic, normal inspection Eye exam: Present: normal appearance, PERRL, EOMI. Absent: scleral icterus, conjunctival injection, periorbital swelling ENT exam: Present: normal exam, mucous membranes moist Neck exam: Present: normal inspection. Absent: tenderness, meningismus, lymphadenopathy Respiratory exam: Present: normal lung sounds bilaterally. Absent: respiratory distress, wheezes, rales, rhonchi, stridor Cardiovascular Exam: Present: normal rhythm, tachycardia, normal heart sounds. Absent: systolic murmur, diastolic murmur, rubs, gallop, clicks GI/Abdominal exam: Present: soft, normal bowel sounds. Absent: distended, tenderness, guarding, rebound, rigid Neurological exam: Present: alert, oriented X3 Psychiatric exam: Present: depressed Course Vital Signs 11/22/23 13:53 Temperature 99.7 F H Pulse Rate 107 H Respiratory 22 Rate Blood Pressure 145/108 O2 Sat by Pulse 94 L Oximetry Medical Decision Making - Medical Decision Making Was pt. sent in by a medical professional or institution (, MINISTERIO, ENTERPRISE ACCOUNT MANAGER, urgent care, hospital, or alf...) When possible be specific @ -No Did you speak to anyone other than the patient for history (EMS, parent, family, police, friend...)? What history was obtained from this source @ -No Did you review nursing and triage notes (agree or disagree)? Why? @ -I reviewed and agree with nursing and triage notes Were old charts reviewed (outside hosp., previous admission, EMS record, old EKG, old radiological studies, urgent care reports/EKG's, alf records)? Report findings @ -No old charts were reviewed Differential Diagnosis (chest pain, altered mental status, abdominal pain women, abdominal pain men, vaginal bleeding, weakness, fever, dyspnea, syncope, headache, dizziness, GI bleed, back pain, seizure, CVA, palpatations, mental health, musculoskeletal)? @ -Differential Mental Health Depression, anxiety, bipolar, psychosis, schizophrenia, borderline personality, situational depression, adjustment disorder, behavioral disorder, brain tumor, malingering, substance abuse, encephalopathy, medication reaction, dementia, hypothyroidism, degenerative neurologic disorder, lupus.... This is not meant to be all-inclusive list EKG interpreted by me (3pts min.). @ -[None X-rays interpreted by me (1pt min.). @ -Chest x-ray shows no acute cardiopulmonary process CT interpreted by me (1pt min.). @ -[None done U/S interpreted by me (1pt. min.). @ -None done What testing was considered but not performed or refused? (CT, X-rays, U/S, labs)? Why? @ -None What meds were considered but not given or refused? Why? @ -None Did you discuss the management of the patient with other professionals (professionals i.e. MINISTERIO Barker, ENTERPRISE ACCOUNT MANAGER, lab, RT, psych nurse, social media project manager, inside sales consultant, teacher, district fire management officer, skilled nursing case manager)? Give summary @ -ATC for admission secondary to severe alcohol intoxication, depression, suicide ideation requiring psychiatric treatment/evaluation Was smoking cessation discussed for >3mins.? @ -No Was critical care preformed (if so, how long)? @ -No Were there social determinants of health that impacted care today? How? (Homelessness, low income, unemployed, alcoholism, drug addiction, transportation, low edu. Level, literacy, decrease access to med. care, residential, rehab)? @ -No Was there de-escalation of care discussed even if they declined (Discuss DNR or withdrawal of care, Hospice)? DNR status @ -No What co-morbidities impacted this encounter? (DM, HTN, Smoking, COPD, CAD, Cancer, CVA, ARF, Chemo, Hep., AIDS, mental health diagnosis, sleep apnea, morbid obesity)? @ -Alcohol abuse Was patient admitted / discharged? Hospital course, mention meds given and route, prescriptions, significant lab abnormalities, going to OR and other pertinent info. @ -Admitted for psychiatric evaluation once patient is sober. Alcohol level 300. Patient was placed on CIWA and alcohol withdrawal protocol along with suicidal precaution. Undiagnosed new problem with uncertain prognosis? @ -No Drug Therapy requiring intensive monitoring for toxicity (Heparin, Nitro, Insulin, Cardizem)? @ -No Were any procedures done? @ -No Diagnosis/symptom? @ -Alcohol abuse, alcohol intoxication, Acute, or Chronic, or Acute on Chronic? @ -acute Uncomplicated (without systemic symptoms) or Complicated (systemic symptoms)? @ -Complicated Side effects of treatment? @ -No Exacerbation, Progression, or Severe Exacerbation? @ -No Poses a threat to life or bodily function? How? (Chest pain, USA, MA, pneumonia, PE, COPD, DKA, ARF, appy, cholecystitis, CVA, Diverticulitis, Homicidal, Suicidal, threat to staff... and all critical care pts) @ -No - Lab Data Result diagrams: 11/22/23 14:28 11/22/23 14: Lab Results 11/22/23 11/22/23 11/22/23 Range/Units 14:28 14:28 14: WBC 3.8 (3.8-10.6) k/uL RBC 4.95 (4.30-5.90) m/uL Hgb 15.1 (13.0-17.5) gm/dL Hct 45.1 (39.0-53.0) % MCV 91.2 (80.0-100.0) fL MCH 30.5 (25.0-35.0) pg MCHC 33.4 (31.0-37.0) g/dL RDW 12.8 (11.5-15.5) % Plt Count 273 (150-450) k/uL MPV 7.2 Neutrophils % 37 % Lymphocytes % 50 % Monocytes % 4 % Eosinophils % 6 % Basophils % 1 % Neutrophils # 1.4 (1.3-7.7) k/uL Lymphocytes # 1.9 (1.0-4.8) k/uL Monocytes # 0.1 (0-1.0) k/uL Eosinophils # 0.2 (0-0.7) k/uL Basophils # 0.0 (0-0.2) k/uL Sodium 145 (137-145) mmol/L Potassium 3.6 (3.5-5.1) mmol/L Chloride 109 H (98-107) mmol/L Carbon Dioxide 28 (22-30) mmol/L Anion Gap 8 mmol/L BUN 14 (9-20) mg/dL Creatinine 0.69 (0.66-1.25) mg/dL Est GFR (CKD-EPI)AfAm >90 (>60 ml/min/1.73 sqM) Est GFR (CKD-EPI)NonAf >90 (>60 ml/min/1.73 sqM) Glucose 136 H (74-99) mg/dL Calcium 8.7 (8.4-10.2) mg/dL Magnesium 1.9 (1.6-2.3) mg/dL Total Bilirubin 0.6 (0.2-1.3) mg/dL AST 74 H (17-59) U/L ALT 45 (4-49) U/L Alkaline Phosphatase 67 (38-126) U/L Total Protein 7.2 (6.3-8.2) g/dL Albumin 4.5 (3.5-5.0) g/dL Lipase 75 (23-300) U/L Urine Color Yellow Urine Appearance Clear (Clear) Urine pH 6.0 (5.0-8.0) Ur Specific Morning Sun 1.029 (1.001-1.035) Urine Protein 1+ H (Negative) Urine Glucose (UA) Negative (Negative) Urine Ketones Trace H (Negative) Urine Blood Negative (Negative) Urine Nitrite Negative (Negative) Urine Bilirubin Negative (Negative) Urine Urobilinogen <2.0 (<2.0) mg/dL Ur Leukocyte Esterase Negative (Negative) Urine RBC 1 (0-5) /hpf Urine WBC 2 (0-5) /hpf Ur Squamous Epith Cells <1 (0-4) /hpf Urine Mucus Occasional H (None) /hpf Urine Opiates Screen Not Detected (NotDetected) Ur Oxycodone Screen Not Detected (NotDetected) Urine Methadone Screen Not Detected (NotDetected) Ur Barbiturates Screen Not Detected (NotDetected) U Tricyclic Antidepress Not Detected (NotDetected) Ur Phencyclidine Scrn Not Detected (NotDetected) Ur Amphetamines Screen Not Detected (NotDetected) U Methamphetamines Scrn Not Detected (NotDetected) U Benzodiazepines Scrn Detected H (NotDetected) Urine Cocaine Screen Not Detected (NotDetected) U Marijuana (THC) Screen Not Detected (NotDetected) Serum Alcohol 298 H* mg/dL Influenza Type A (PCR) (Not Detectd) Influenza Type B (PCR) (Not Detectd) RSV (PCR) (Not Detectd) SARS-CoV-2 (PCR) (Not Detectd) 11/22/23 Range/Units 14:28 WBC (3.8-10.6) k/uL RBC (4.30-5.90) m/uL Hgb (13.0-17.5) gm/dL Hct (39.0-53.0) % MCV (80.0-100.0) fL MCH (25.0-35.0) pg MCHC (31.0-37.0) g/dL RDW (11.5-15.5) % Plt Count (150-450) k/uL MPV Neutrophils % % Lymphocytes % % Monocytes % % Eosinophils % % Basophils % % Neutrophils # (1.3-7.7) k/uL Lymphocytes # (1.0-4.8) k/uL Monocytes # (0-1.0) k/uL Eosinophils # (0-0.7) k/uL Basophils # (0-0.2) k/uL Sodium (137-145) mmol/L Potassium (3.5-5.1) mmol/L Chloride (98-107) mmol/L Carbon Dioxide (22-30) mmol/L Anion Gap mmol/L BUN (9-20) mg/dL Creatinine (0.66-1.25) mg/dL Est GFR (CKD-EPI)AfAm (>60 ml/min/1.73 sqM) Est GFR (CKD-EPI)NonAf (>60 ml/min/1.73 sqM) Glucose (74-99) mg/dL Calcium (8.4-10.2) mg/dL Magnesium (1.6-2.3) mg/dL Total Bilirubin (0.2-1.3) mg/dL AST (17-59) U/L ALT (4-49) U/L Alkaline Phosphatase (38-126) U/L Total Protein (6.3-8.2) g/dL Albumin (3.5-5.0) g/dL Lipase (23-300) U/L Urine Color Urine Appearance (Clear) Urine pH (5.0-8.0) Ur Specific Morning Sun (1.001-1.035) Urine Protein (Negative) Urine Glucose (UA) (Negative) Urine Ketones (Negative) Urine Blood (Negative) Urine Nitrite (Negative) Urine Bilirubin (Negative) Urine Urobilinogen (<2.0) mg/dL Ur Leukocyte Esterase (Negative) Urine RBC (0-5) /hpf Urine WBC (0-5) /hpf Ur Squamous Epith Cells (0-4) /hpf Urine Mucus (None) /hpf Urine Opiates Screen (NotDetected) Ur Oxycodone Screen (NotDetected) Urine Methadone Screen (NotDetected) Ur Barbiturates Screen (NotDetected) U Tricyclic Antidepress (NotDetected) Ur Phencyclidine Scrn (NotDetected) Ur Amphetamines Screen (NotDetected) U Methamphetamines Scrn (NotDetected) U Benzodiazepines Scrn (NotDetected) Urine Cocaine Screen (NotDetected) U Marijuana (THC) Screen (NotDetected) Serum Alcohol mg/dL Influenza Type A (PCR) Not Detected (Not Detectd) Influenza Type B (PCR) Not Detected (Not Detectd) RSV (PCR) Not Detected (Not Detectd) SARS-CoV-2 (PCR) Not Detected (Not Detectd) Disposition Clinical Impression: Alcohol withdrawal, Alcohol intoxication, Depression, Suicidal ideation Disposition: ADMITTED IP TO THIS [facility] Condition: Fair Referrals: None,Stated [REFERRING] - 1-2 days Time of Disposition: 15:38
[2023-11-22] MEDS: NICOTINE 21MG/24HR PATCH TRANSDERM STA (14:40)
[2023-11-22 14:54] LABS: Basophils % (A) 1 %; Eosinophils # (A) 0.2 k/uL (0-0.7); Eosinophils % (A) 6 %; HCT 45.1 % (39.0-53.0); HGB 15.1 gm/dL (13.0-17.5); Lymphocytes # (A) 1.9 k/uL (1.0-4.8); Lymphocytes % (A) 50 %; MCH 30.5 pg (25.0-35.0); MCHC 33.4 g/dL (31.0-37.0); MCV 91.2 fL (80.0-100.0); Mean Platelet Volume 7.2; Monocytes # (A) 0.1 k/uL (0-1.0); Monocytes % (A) 4 %; Neutrophils # (A) 1.4 k/uL (1.3-7.7); Neutrophils % (A) 37 %; Platelet Count 273 k/uL (150-450); RBC 4.95 m/uL (4.30-5.90); RDW 12.8 % (11.5-15.5); WBC 3.8 k/uL (3.8-10.6)
--- NOTE | 2023-11-22 15:02 | XR ---
EXAMINATION TYPE: XR chest 2V DATE OF EXAM: 11/22/2023 COMPARISON: 06/15/2022 HISTORY: 33-year-old male with fever TECHNIQUE: PA and lateral views FINDINGS: The cardiomediastinal silhouette, aorta, and pulmonary vasculature are within normal limits. Lungs an d pleural spaces are clear. IMPRESSION: No acute cardiopulmonary process.
[2023-11-22 15:06] LABS: ALT 45 U/L (4-49); AST 74 U/L (17-59); African American GFR (CKD) >90 (>60 ml/min/1.73 sqM); Albumin 4.5 g/dL (3.5-5.0); Alkaline Phosphatase 67 U/L (38-126); Anion Gap 8 mmol/L; Blood Urea Nitrogen 14 mg/dL (9-20); Calcium 8.7 mg/dL (8.4-10.2); Carbon Dioxide 28 mmol/L (22-30); Chloride 109 mmol/L (98-107); Glucose 136 mg/dL (74-99); Lipase 75 U/L (23-300); Magnesium 1.9 mg/dL (1.6-2.3); Non-African American GFR(CKD) >90 (>60 ml/min/1.73 sqM); Potassium 3.6 mmol/L (3.5-5.1); Sodium 145 mmol/L (137-145); Total Bilirubin 0.6 mg/dL (0.2-1.3); Total Protein 7.2 g/dL (6.3-8.2)
[2023-11-22 15:11] LABS: Appearance,Urine Clear (Clear); Bilirubin,Urine Negative (Negative); Blood,Urine Negative (Negative); Color,Urine Yellow; Glucose,Urine (UA) Negative (Negative); Ketones,Urine Trace (Negative); Leukocyte Esterase,Urine Negative (Negative); Mucus,Urine Occasional /hpf; Nitrite,Urine Negative (Negative); Protein,Urine 1+ (Negative); RBC,Urine 1 /hpf (0-5); Specific Gravity,Urine 1.029 (1.001-1.035); Squamous Epithelial Cell,Urine <1 /hpf (0-4); Urobilinogen,Urine <2.0 mg/dL (<2.0); WBC,Urine 2 /hpf (0-5)
[2023-11-22 15:16] LABS: Cocaine Screen,Urine Not Detected (NotDetected); Phencyclidine Screen,Urine Not Detected (NotDetected); Urn Cannabinoid Scrn Not Detected (NotDetected)
[2023-11-22 15:17] LABS: Amphetamine Screen,Urine Not Detected (NotDetected); Barbiturate Screen,Urine Not Detected (NotDetected); Benzodiazepines Screen,Urine Detected (NotDetected); Methadone Screen, Urine Not Detected (NotDetected); Opiate Screen,Urine Not Detected (NotDetected); Oxycodone Screen, Urine Not Detected (NotDetected); Tricyclic Antidepressant,Urine Not Detected (NotDetected)
[2023-11-22 15:29] LABS: Alcohol 298 mg/dL
[2023-11-22] MEDS ORDERED: LORazepam 2 MG/ML INJ IV PRN ×2 (15:34)
[2023-11-22] MEDS ORDERED: ONDANSETRON 4 MG/2 ML VIAL IVP PRN (15:39)
[2023-11-22] MEDS ORDERED: ACETAMINOPHEN TAB 325 MG TAB PO PRN (15:39)
[2023-11-22] MEDS ORDERED: NALOXONE 0.4 MG/ML 1 ML VIAL IV PRN (15:39)
[2023-11-22] MEDS: LORazepam 2 MG/ML INJ IV PRN (22:06)
--- NOTE | 2023-11-23 07:21 | P.HPIM ---
History of Present Illness This is a pleasant 33 years old male with past medical history of cocaine and alcohol use disorder.His PCP is Dr. Rivera Patient presents because of alcohol intoxication and withdrawal and patient feels depressed and suicidal. Patient seen and examined at bedside in the emergency room 13, his brother was at bedside. Patient was awake alert, looks drowsy from drinking alcohol. He comes and answers questions appropriately. He looks calm. Patient states that he feels depressed and he had thoughts to kill himself like half hour prior to the encounter he was thinking of killing himself. Patient denies hallucination visual or auditory. No delusions. No abnormal movements. Patient denies chest pain or dyspnea. No change in urine or bowel habits. No headache dizziness or weakness. He denies smoking to me or illicit drugs currently. He states that he drinks fifth of liquor every day and his last drink was an hour before coming to the emergency room. Patient states that he has some diarrhea about twice per day and he vomited twice per day but there was no blood. Vitals are stable, he has low-grade temperature 99.7. Labs unremarkable including CBC, BMP, liver enzymes, urine analysis. Glucose 136. Urine drug screen is positive for benzodiazepines only Alcohol level elevated to 93 My virus Chest x-ray is negative for acute process Review of Systems Review of systems CONSTITUTIONAL: No fever, no malaise, no fatigue. HEENT: No recent visual problems or hearing problems. Denied any sore throat. CARDIOVASCULAR: No orthopnea, PND, no palpitations, no syncope. PULMONARY: No shortness of breath, no cough, no hemoptysis. GASTROINTESTINAL: No diarrhea, no nausea, no vomiting, no abdominal pain. Normoactive bowel sounds. NEUROLOGICAL: No headaches, no weakness, no numbness. HEMATOLOGICAL: Denies any bleeding or petechiae. GENITOURINARY: Denies any burning micturition, frequency, or urgency. MUSCULOSKELETAL/RHEUMATOLOGICAL: Denies any joint pain, swelling, or any muscle pain. ENDOCRINE: Denies any polyuria or polydipsia. Past Medical History Past Medical History: No Reported History History of Any Multi-Drug Resistant Organisms: None Reported Past Surgical History: No Surgical Hx Reported Past Psychological History: Anxiety Smoking Status: Vaper Past Alcohol Use History: Abuse, Daily, Heavy Past Drug Use History: Cocaine Medications and Allergies Home Medications Medication Instructions Recorded Confirmed Type No Known Home Medications 11/22/23 11/22/23 History Allergies Allergy/AdvReac Type Severity Reaction Status Date / Time cat dander AdvReac Wheezing Verified 11/22/23 15:19 milk AdvReac Nausea & Verified 11/22/23 15:19 Vomiting & Diarrhea Physical Exam Vitals: Vital Signs Temp Pulse Resp BP Pulse Ox 11/22/23 13:53 99.7 F H 107 H 22 145/108 94 L Intake and Output 11/21/23 11/22/23 11/22/23 21:59 06:59 14:59 Other: Weight 56.699 kg GENERAL: The patient is alert and oriented x3, not in any acute distress. Well developed, well nourished. HEENT: Pupils are round and equally reacting to light. EOMI. No scleral icterus. No conjunctival pallor. Normocephalic, atraumatic. No pharyngeal erythema. No thyromegaly. CARDIOVASCULAR: S1 and S2 present. No murmurs, rubs, or gallops. PULMONARY: Chest is clear to auscultation, no wheezing , no crackles. ABDOMEN: Soft, nontender, nondistended, normoactive bowel sounds. No palpable organomegaly. MUSCULOSKELETAL: No joint swelling or deformity. EXTREMITIES: No cyanosis, clubbing, or pedal edema. NEUROLOGICAL: Gross neurological examination did not reveal any focal deficits. SKIN: No rashes. no petechiae. Results CBC & Chem 7: 11/22/23 14:28 11/22/23 14:28 Assessment and Plan Assessment: Alcohol use disorder with alcohol intoxication at risk of alcohol withdrawal Severe depression and suicidal ideation History of alcohol use disorder Plan: Continue with CIWA protocol and thiamine Suicidal precaution Keep sitter at bedside Further recommendations as per clinical course of the patient DVT prophylaxis: Subcutaneous heparin GI Prophylaxis: Pepcid Prognosis is guarded
[2023-11-23] MEDS: FAMOTIDINE 20 MG/2 ML VIAL IV SCH (08:33)
[2023-11-23] MEDS: HEPARIN SODIUM,PORCINE 5,000 UNIT/ML 1 ML VIAL SQ SCH (08:34)
[2023-11-23] MEDS: THIAMINE 100 MG TAB PO SCH (08:34)
--- NOTE | 2023-11-23 10:19 | P.CN ---
Psychiatric Consult - . Consult date: 11/23/23 Consult:: 11/23/23 10:14 Patient Name: Jose Contreras Date of : 88 Patient Status: Observation Attending Provider: Carlitos Rivera Date: 11/23/23 14:15 Initialization Date: 11/22/23 14:15 Psych HPI - General Chief Complaint: Psychiatric Symptoms Stated Complaint: Mental Health/Alcoholism Source: patient, RN notes reviewed Mode of arrival: ambulatory Limitations: no limitations Dissociative assessment on Jose Contreras was a 33-year-old male and was seen in 4 depression and suicidal ideations Patient also has a chronic history of alcohol use in his: Through several inpatient substance use programs Patient also reported that he attends AA meetings on a regular basis Patient says that he try to make a change in his life. 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 treatment Past history personal social history as described visit for further details. ' Mental status examination: Reveals a young male who currently appears in no acute physical distress. 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 treatment would recommend starting the patient on naltrexone 50 mg daily starting at least 2 days after his last drink and Campral 666 mg 3 times a day 2 days after the last drink Discussed effects and side effects of medication Thank you very much for the kind referral and pressured feel contact me if any further questions Chris Cartagena M.D.
[2023-11-23] MEDS: FAMOTIDINE 20 MG TAB PO SCH (20:29)
[2023-11-23] MEDS: LORazepam 1 MG TAB PO PRN (21:38)
[2023-11-24 03:13] VITALS: RESP 15
[2023-11-24 08:46] VITALS: BP 139/92; PULSE 87; TEMP 98.4
--- NOTE | 2023-11-24 20:01 | DS ---
DISCHARGE SUMMARY CHIEF COMPLAINT: Major depression with suicidal thoughts. HISTORY OF PRESENT ILLNESS AND PHYSICAL EXAMINATION: Details of this man's history and physical can be found in the initial workup. LABORATORY STUDIES: While he was in the hospital, he had laboratory studies, details of which can be found in the laboratory section of his chart. COURSE IN THE HOSPITAL: After admission, he was placed on bedrest, started on intravenous fluids, and suicide watch. He was eventually seen by Psychiatry and they felt he was no longer suicidal and did not need to be in the hospital. I asked the patient if he was suicidal, he claimed that he was not. It was felt that he could be discharged home on the and he will follow up in my office in several days. FINAL DIAGNOSES: 1. Major depression. 2. Suicidal thoughts. 3. Acute alcohol intoxication. OPERATIONS: None. CONSULTATIONS: Psychiatry. He is improved. BALJINDER / REINA: [id number] /
--- NOTE | 2023-11-24 21:49 | HP ---
HISTORY AND PHYSICAL CHIEF COMPLAINT: Acute alcohol intoxication, depression, and suicidal thoughts. HISTORY OF PRESENT ILLNESS: This is a 33-year-old white male, who presented to the emergency room with depression and suicidal thoughts, and was admitted. He was intoxicated. REVIEW OF SYSTEMS: Not obtained. Past medical history, family history, and personal and social histories are otherwise unremarkable. PHYSICAL EXAMINATION: VITAL SIGNS: Normal. HEAD, EARS, EYES, NOSE, MOUTH AND THROAT: Normal. NECK: Supple. CHEST: Clear. CARDIAC: Normal. ABDOMEN: Soft, nontender. EXTREMITIES: Normal. NEUROLOGICAL: He is intact, but he was intoxicated. IMPRESSION: He is admitted to the hospital with diagnoses of: 1. Major depression. 2. Suicidal thoughts. 3. Alcoholism. PLAN: 1. Bed rest. 2. IV fluids. 3. Bedside watch. 4. Psych consult. MMERIK / IJN: [id number] /
--- NOTE | 2023-11-24 23:16 | PN ---
PROGRESS NOTE DATE OF SERVICE: 11/23/2023 CHIEF COMPLAINT: Overdose, depression and suicidal ideation. HISTORY OF PRESENT ILLNESS: This gentleman is a little bit more awake and alert. He is being fully evaluated by Psychiatry to determine whether or not he will go inpatient. PHYSICAL EXAMINATION: VITAL SIGNS: Normal. CHEST: Clear. CARDIAC: Normal. ABDOMEN: Soft, nontender. IMPRESSION: 1. Major depression. 2. Suicidal thoughts and suicidal personality. 3. Alcoholism. PLAN: Await recommendations of Psychiatry. MMODL / IJN: [id number] /
== END 2023-11-24 11:39 | disposition home or self-care (01) ==
LOC: EC 13:46 → 6NMEDSUR 15:42
PROVIDERS: ADMIT Family Medicine; ATTEND Family Medicine
DX: F10.229 Alcohol dependence with intoxication, unspecified (principal); F10.239 Alcohol dependence with withdrawal, unspecified; R45.851 Suicidal ideations; F32.9 Major depressive disorder, single episode, unspecified; F43.23 Adjustment disorder with mixed anxiety and depressed mood; F17.290 Nicotine dependence, other tobacco product, uncomplicated; Y90.8 Blood alcohol level of 240 mg/100 ml or more; Z11.52 Encounter for screening for COVID-19
CPT/HCPCS: 96376; 96372 ×2; 96374; 96375; 82075; 99285; 36415; 80053; 83690; 83735; 85025; 81001; 80306; 87636; 71046; G0378 ×3; G0480; S4990; J2060 ×2; J1644 ×2; J3490; 80320

== ENCOUNTER 2025-02-26 13:14 | Observation (INO) | payer BC, OTHER ==
[2025-02-26 13:44] LABS: Basophils # (A) 0.07 10*3/uL (0.00-0.10); Basophils % (A) 1.2 %; Eosinophils # (A) 0.24 10*3/uL (0.04-0.35); HCT 43.3 % (39.6-50.0); HGB 15.1 g/dL (13.0-17.0); Lymphocytes # (A) 1.82 10*3/uL (0.90-5.00); Lymphocytes % (A) 30.1 %; MCH 29.8 pg (27.0-32.0); MCHC 34.9 g/dL (32.0-37.0); MCV 85.4 fL (80.0-97.0); Mean Platelet Volume 9.9 fL (9.5-12.2); Monocytes # (A) 0.35 10*3/uL (0.20-1.00); Monocytes % (A) 5.8 %; Neutrophils # (A) 3.56 10*3/uL (1.80-7.70); Neutrophils % (A) 58.7 %; Platelet Count 281 10*3/uL (140-440); RBC 5.07 10*6/uL (4.40-5.60); RDW 12.1 % (11.5-14.5); WBC 6.05 10*3/uL (4.50-10.00)
--- NOTE | 2025-02-26 13:47 | ED ---
General Adult HPI - General Source: patient, RN notes reviewed Mode of arrival: ambulatory Limitations: no limitations <Juan Carter - Last Filed: 02/26/25 13:46> - General Source: patient, RN notes reviewed, old records reviewed <Neville Hansen - Last Filed: 02/26/25 15:25> - General Chief complaint: Chest Pain Stated complaint: Chest pain, Time Seen by Provider: 02/26/25 13:30 - History of Present Illness Initial comments: Quick note: This is a 35-year-old male with history of EtOH abuse presenting for chest pain started 1 hour prior to ER arrival. Patient describes pain (02/21) as intermittent, described as pressure in his mid chest without radiation. Patient states he had quit alcohol for 1 year before relapsing 2 weeks ago. States his last use of alcohol was 45 minutes prior to ER arrival (liquor). Patient states that he suspects chest pain is due to alcohol withdrawal. Denies fever, chills, dyspnea, abdominal pain, N/V/D. (Juan Carter) Patient is a 35-year-old male who presents emergency department for alcohol withdrawals and alcohol taxation. He has a history of significant withdrawals per patient. Attempted to cease alcohol use at home but states it was not improving. Denies any other drug use. Denies any significant past medical history. States he has been having the shakes with nausea vomiting and some chest tightness and anxiety all of which are very typical for his withdrawal symptoms. States he currently just feels mildly nauseous. Denies any significant headache. Drinking shortly prior to arrival to help with his symptoms. Presents for further evaluation at this time. Denies any suicidal or homicidal ideations, times complaints. Denies any visual auditory bautista llucinations. Denies any acute complaints at this time. Originally seen as a quick note. I evaluated patient when workup was completed. (Neville Hansen) - Related Data Home Medications Medication Instructions Recorded Confirmed No Known Home Medications 11/22/23 11/22/23 Allergies Allergy/AdvReac Type Severity Reaction Status Date / Time cat dander AdvReac Wheezing Verified 02/26/25 13:18 Review of Systems ROS Other: All systems not noted in ROS Statement are negative. <Juan Carter - Last Filed: 02/26/25 13:46> ROS Other: All systems not noted in ROS Statement are negative. <Neville Hansen - Last Filed: 02/26/25 15:25> ROS Statement: Those systems with pertinent positive or pertinent negative responses have been documented in the HPI. Past Medical History Past Medical History: No Reported History History of Any Multi-Drug Resistant Organisms: None Reported Past Surgical History: No Surgical Hx Reported Past Anesthesia/Blood Transfusion Reactions: No Reported Reaction Past Psychological History: Anxiety Smoking Status: Vaper Past Alcohol Use History: Abuse, Daily, Heavy Past Drug Use History: Cocaine <Juan Carter - Last Filed: 02/26/25 13:46> General Exam Limitations: no limitations <Juan Carter - Last Filed: 02/26/25 13:46> - General Exam Comments Initial Comments: Visual Physical Exam Vital signs reviewed General: Well-appearing, nontoxic, no acute distress. Head: Normocephalic, atraumatic Eyes: PERRLA, EOMI ENT: Airway patent Chest: Nonlabored breathing Skin: No visual rash, normal skin tone Neuro: Alert and oriented 3 Musculoskeletal: No gross abnormalities (Juan Carter) Course Vital Signs 02/26/25 13:16 Temperature 97.9 F Pulse Rate 102 H Respiratory 20 Rate Blood Pressure 154/116 O2 Sat by Pulse 99 Oximetry Medical Decision Making - Lab Data Result diagrams: 02/26/25 13:33 <Juan Carter - Last Filed: 02/26/25 13:46> - Lab Data Result diagrams: 02/26/25 13:33 02/26/25 13:33 - EKG Data -: EKG Interpreted by Me <Neville Hansen - Last Filed: 02/26/25 15:25> - Medical Decision Making I completed the quick note portion of this chart signed PEYMAN Galvan (Juan Carter) Was pt. sent in by a medical professional or institution (MINISTERIO Barker, SOLID WASTE MANAGEMENT ENGINEER, urgent care, hospital, or custodial...) When possible be specific @ -No Did you speak to anyone other than the patient for history (EMS, parent, family, police, friend...)? What history was obtained from this source @ -No Did you review nursing and triage notes (agree or disagree)? Why? @ -I reviewed and agree with nursing and triage notes Were old charts reviewed (outside hosp., previous admission, EMS record, old EKG, old radiological studies, urgent care reports/EKG's, custodial records)? Report findings @ -Today's EKG compared with EKG from June 2022 with no significant acute change. Differential Diagnosis (chest pain, altered mental status, abdominal pain women, abdominal pain men, vaginal bleeding, weakness, fever, dyspnea, syncope, headache, dizziness, GI bleed, back pain, seizure, CVA, palpatations, mental h ealth, musculoskeletal)? @ -Alcohol withdrawls, dehydration, alcohol intoxication. This list is not all-inclusive. EKG interpreted by me (3pts min.). @ -As above X-rays interpreted by me (1pt min.). @ -Chest x-ray reveals no obvious acute cardiopulmonary process. CT interpreted by me (1pt min.). @ -None done U/S interpreted by me (1pt. min.). @ -None done What testing was considered but not performed or refused? (CT, X-rays, U/S, labs)? Why? @ -None What meds were considered but not given or refused? Why? @ -None Did you discuss the management of the patient with other professionals ( professionals i.e. , PA, SOLID WASTE MANAGEMENT ENGINEER, lab, RT, psych nurse, addiction social worker, fiber artist, teacher, surveillance sensor officer, bilingual case manager)? Give summary @ -Discussed with admitting provider, Dr. Onofre who is covering for Dr. Rivera who accepted the admission. Was smoking cessation discussed for >3mins.? @ -No Was critical care preformed (if so, how long)? @ -No Were there social determinants of health that impacted care today? How? (Homelessness, low income, unemployed, alcoholism, drug addiction, transportation, low edu. Level, literacy, decrease access to med. care, custodial, rehab)? @ -No Was there de-escalation of care discussed even if they declined (Discuss DNR or withdrawal of care, Hospice)? DNR status @ -No What co-morbidities impacted this encounter? (DM, HTN, Smoking, COPD, CAD, Cancer, CVA, ARF, Chemo, Hep., AIDS, mental health diagnosis, sleep apnea, morbid obesity)? @ -Alcohol intoxication, history of alcohol withdrawals. Was patient admitted / discharged? Hospital course, mention meds given and route, prescriptions, significant lab abnormalities, going to OR and other pertinent info. @ -Patient presents with alcohol intoxication alcohol withdrawals. His symptoms associated with his withdrawals including chest tightness and intermittent nausea. Currently has no symptoms. Vital signs are within acceptable limits. Workup started and completed while patient was in triage. Troponin is undetectable. Alcohol level is 169. Remainder the labs unremarkable. Chest x-ray unremarkable. EKG shows no signs of acute ischemia. I updated the patient. He is still having mild withdrawals at this time. He states he does not plan on drinking. Therefore patient will be admitted to the hospital. He is placed on CIWA protocol. He will be given Ativan, Zofran, IV fluids. He was in agreement this plan. I spoke with the admitting provider, Dr. Onofre who is covering for Dr. Miguel kam ho accepted the admission. Undiagnosed new problem with uncertain prognosis? @ -No Drug Therapy requiring intensive monitoring for toxicity (Heparin, Nitro, Insulin, Cardizem)? @ -No Were any procedures done? @ -No Diagnosis/symptom? @ -Alcohol intoxication, alcohol withdrawals Acute, or Chronic, or Acute on Chronic? @ -Acute Uncomplicated (without systemic symptoms) or Complicated (systemic symptoms)? @ -Complicated Side effects of treatment? @ -No Exacerbation, Progression, or Severe Exacerbation? @ -No Poses a threat to life or bodily function? How? (Chest pain, USA, NM, pneumonia, PE, COPD, DKA, ARF, appy, cholecystitis, CVA, Diverticulitis, Homicidal, Suicidal, threat to staff... and all critical care pts) @ -Yes (Neville Hansen) - Lab Data Lab Results 02/26/25 02/26/25 02/26/25 Range/Units 13:33 13:33 13:33 WBC 6.05 (4.50-10.00) 10*3/uL RBC 5.07 (4.40-5.60) 10*6/uL Hgb 15.1 (13.0-17.0) g/dL Hct 43.3 (39.6-50.0) % MCV 85.4 (80.0-97.0) fL MCH 29.8 (27.0-32.0) pg MCHC 34.9 (32.0-37.0) g/dL Plt Count 281 (140-440) 10*3/uL MPV 9.9 (9.5-12.2) fL Immature Gran % (Auto) 0.2 % Neutrophils % 58.7 % Lymphocytes % 30.1 % Monocytes % 5.8 % Eosinophils % 4.0 % Basophils % 1.2 % Immature Gran # 0.01 (0.00-0.04) 10*3/uL Neutrophils # 3.56 (1.80-7.70) 10*3/uL Lymphocytes # 1.82 (0.90-5.00) 10*3/uL Monocytes # 0.35 (0.20-1.00) 10*3/uL Eosinophils # 0.24 (0.04-0.35) 10*3/uL Basophils # 0.07 (0.00-0.10) 10*3/uL PT 10.5 (10.0-12.5) sec INR 0.9 (<1.2) APTT 23.4 (22.0-30.0) sec Sodium 139 (137-145) mmol/L Potassium 3.8 (3.5-5.1) mmol/L Chloride 102 (98-107) mmol/L Carbon Dioxide 24 (22-30) mmol/L Anion Gap 13 mmol/L BUN 15 (9-20) mg/dL Creatinine 0.66 (0.66-1.25) mg/dL Est GFR (CKD-EPI)AfAm >90 (>60 ml/min/1.73 sqM) Est GFR (CKD-EPI)NonAf >90 (>60 ml/min/1.73 sqM) Glucose 110 H (74-99) mg/dL Calcium 9.4 (8.4-10.2) mg/dL Magnesium 2.0 (1.6-2.3) mg/dL Total Bilirubin 1.4 H (0.2-1.3) mg/dL AST 80 H (17-59) U/L ALT 45 (4-49) U/L Alkaline Phosphatase 90 (38-126) U/L Troponin I (0.000-0.034) ng/mL Total Protein 7.6 (6.3-8.2) g/dL Albumin 4.8 (3.5-5.0) g/dL Serum Alcohol 169 mg/dL 06/15/25 Range/Units 13:33 WBC (4.50-10.00) 10*3/uL RBC (4.40-5.60) 10*6/uL Hgb (13.0-17.0) g/dL Hct (39.6-50.0) % MCV (80.0-97.0) fL MCH (27.0-32.0) pg MCHC (32.0-37.0) g/dL Plt Count (140-440) 10*3/uL MPV (9.5-12.2) fL Immature Gran % (Auto) % Neutrophils % % Lymphocytes % % Monocytes % % Eosinophils % % Basophils % % Immature Gran # (0.00-0.04) 10*3/uL Neutrophils # (1.80-7.70) 10*3/uL Lymphocytes # (0.90-5.00) 10*3/uL Monocytes # (0.20-1.00) 10*3/uL Eosinophils # (0.04-0.35) 10*3/uL Basophils # (0.00-0.10) 10*3/uL PT (10.0-12.5) sec INR (<1.2) APTT (22.0-30.0) sec Sodium (137-145) mmol/L Potassium (3.5-5.1) mmol/L Chloride (98-107) mmol/L Carbon Dioxide (22-30) mmol/L Anion Gap mmol/L BUN (9-20) mg/dL Creatinine (0.66-1.25) mg/dL Est GFR (CKD-EPI)AfAm (>60 ml/min/1.73 sqM) Est GFR (CKD-EPI)NonAf (>60 ml/min/1.73 sqM) Glucose (74-99) mg/dL Calcium (8.4-10.2) mg/dL Magnesium (1.6-2.3) mg/dL Total Bilirubin (0.2-1.3) mg/dL AST (17-59) U/L ALT (4-49) U/L Alkaline Phosphatase (38-126) U/L Troponin I <0.012 (0.000-0.034) ng/mL Total Protein (6.3-8.2) g/dL Albumin (3.5-5.0) g/dL Serum Alcohol mg/dL - EKG Data EKG Comments: 12-lead Electrocardiogram Interpretation Note EKG was reviewed and interpreted by myself. 12-lead ECG performed at 1324 is interpreted by me as revealing normal sinus rhythm at a rate of 81 beats per minute. Decker is normal. HI interval is 120 ms, QRS durations 98 ms, QTc is 397 ms.. There were no ST or T wave abnormalities to suggest myocardial ischemia or injury. R wave progression across the precordium was satisfactory. By my interpretation this EKG is non-diagnostic for acute ischemia. Compared with EKG from June 2022 with no obvious acute significant change. (Neville Hansen) Disposition <Juan Carter - Last Filed: 02/26/25 13:46> Time of Disposition: 15:02 <Neville Hansen - Last Filed: 02/26/25 15:25> Clinical Impression: Alcohol intoxication, Alcohol withdrawal Disposition: ADMITTED IP TO THIS HOSP Condition: Stable Referrals: Carlitos Rivera MD [Primary Care Provider] - 1-2 days
--- NOTE | 2025-02-26 13:51 | XR ---
EXAMINATION TYPE: XR chest 2V DATE OF EXAM: 02/26/2025 1:48 PM COMPARISON: Chest radiographs from 11/22/2023 CLINICAL INDICATION: Male, 35 years old with history of Chest Pain; [facility] TECHNIQUE: XR chest 2V Frontal and lateral views of the chest. FINDINGS: Lungs/Pleura: There is no evidence of pleural effusion, focal consolidation, or pneumothorax. Pulmonary vascularity: Unremarkable. Heart/mediastinum: Cardiomediastinal silhouette is unremarkable. Musculoskeletal: No acute osseous pathology. Other findings: None IMPRESSION: No acute cardiopulmonary disease/process. [facility], , 02/26/2025 1:48 PM
[2025-02-26 13:55] LABS: INR 0.9 (<1.2); Partial Thromboplastin Time 23.4 sec (22.0-30.0); Prothrombin Time 10.5 sec (10.0-12.5)
[2025-02-26 13:56] LABS: ALT 45 U/L (4-49); AST 80 U/L (17-59); African American GFR (CKD) >90 (>60 ml/min/1.73 sqM); Albumin 4.8 g/dL (3.5-5.0); Alkaline Phosphatase 90 U/L (38-126); Anion Gap 13 mmol/L; Blood Urea Nitrogen 15 mg/dL (9-20); Calcium 9.4 mg/dL (8.4-10.2); Carbon Dioxide 24 mmol/L (22-30); Chloride 102 mmol/L (98-107); Glucose 110 mg/dL (74-99); Non-African American GFR(CKD) >90 (>60 ml/min/1.73 sqM); Potassium 3.8 mmol/L (3.5-5.1); Sodium 139 mmol/L (137-145); Total Bilirubin 1.4 mg/dL (0.2-1.3); Total Protein 7.6 g/dL (6.3-8.2)
[2025-02-26 14:02] LABS: Alcohol 169 mg/dL
[2025-02-26] MEDS ORDERED: LORazepam 1 MG/0.5 ML VIAL IV PRN ×2 (14:51)
[2025-02-26] MEDS ORDERED: NALOXONE 0.4 MG/ML 1 ML VIAL IV PRN (15:02)
[2025-02-26] MEDS ORDERED: ONDANSETRON 4 MG/2 ML VIAL IVP PRN (15:02)
[2025-02-26] MEDS ORDERED: ACETAMINOPHEN TAB 325 MG TAB PO PRN (15:02)
[2025-02-26] MEDS: SODIUM CHLORIDE 0.9% 1,000 ML IV SCH (16:07)
[2025-02-26] MEDS: SODIUM CHLORIDE 0.9% 1,000 ML IV ONE (16:07)
[2025-02-26] MEDS: LORazepam 1 MG/0.5 ML VIAL IV STA (16:07)
[2025-02-26] MEDS: THIAMINE 100 MG/ML 2 ML VIAL IM STA (16:07)
[2025-02-26] MEDS: ONDANSETRON 4 MG/2 ML VIAL IVP STA (16:08)
--- NOTE | 2025-02-27 00:54 | HP ---
HISTORY AND PHYSICAL CHIEF COMPLAINT: Chest pain and alcohol withdrawal. HISTORY OF PRESENT ILLNESS: This 35-year-old gentleman with a past significant alcohol problems, was drinking up to 1 pint of alcohol. The last drink was this afternoon. The patient is complaining of some chest pain. The patient has some tremors at this time. Apparently, the alcoholism relapsed 2 weeks ago. The troponins are negative. EKG showed nonspecific ST-T changes. Chest x-ray was also normal. The patient is being admitted for further evaluation. Otherwise, the patient admitted for evaluation and treatment. There is no history of fever, rigors, or chills at this time. PAST MEDICAL HISTORY: Reviewed include anxiety, depression, and vaping. Rest of the history and chart is also reviewed. HOME MEDICATIONS: None. ALLERGIES: Cat dander. FAMILY HISTORY: Diabetes runs in the family. SOCIAL HISTORY: Polysubstance abuse. REVIEW OF SYSTEMS: A 14-point review of systems is negative, except as mentioned earlier. PHYSICAL EXAMINATION: VITAL SIGNS: Pulse 73, blood pressure 120/70, and respirations 16. HEENT: Conjunctivae are normal. NECK: No JVD. CARDIOVASCULAR: S1, S2. ABDOMEN: Soft, nondistended. NERVOUS SYSTEM: Mild diffuse tremors present. LABORATORY DATA: Reviewed. ASSESSMENT: 1. Chest pain, rule out coronary artery disease, possibly musculoskeletal. 2. Alcohol intoxication and early withdrawals. 3. Polysubstance abuse including cocaine. 4. Anxiety, depression. RECOMMENDATIONS: This 35-year-old gentleman, presented with multiple complex medical issues. We will monitor the patient closely. Continue the current management and treatment. Otherwise, I would recommend [facility] protocol. 2D echo with Doppler. Cardiology consultation. Otherwise, continue to monitor, and the prognosis is guarded because of multiple complex medical conditions. Alcohol cessation and substance abuse rehab is also recommended. Recommend close follow with Dr. Rivera in the outpatient setting. MMODL / IJN: [id number] /
[2025-02-27] MEDS: LORazepam 1 MG/0.5 ML VIAL IV PRN (01:08)
[2025-02-27] MEDS: PANTOPRAZOLE 40 MG TABLET PO SCH (06:41)
--- NOTE | 2025-02-27 07:19 | P.CRDCN ---
History of Present Illness History of present illness: HISTORY OF PRESENTING ILLNESS This is a pleasant 35-year-old with past medical history significant for alcohol abuse. He does not follow with a rotor plate washer. He states he has been drinking more over the last 2 weeks usually a pint a day. He states he previously had been sober for approximately a year however started drinking again. He has had issues with withdrawals in the past. He started to undergo withdrawals and feeling somewhat more anxious and started having substernal lower chest, epigastric chest pressure intermittently. He was feeling worse and worse and attempted to get in to rehab however there was a wait and therefore came to the emergency department. He denies any associated shortness of breath. He has been having some nausea and decreased appetite for nonalcoholic food. No obvious correlation with food intake. He does admit to some anxiety when he is going through withdrawals. He was given Ativan with significant improvement in his symptoms. He is looking to go to rehab. REVIEW OF SYSTEMS At the time of my exam: CONSTITUTIONAL: Denies fever or chills. CARDIOVASCULAR: +chest pain, no shortness of breath, orthopnea, PND or palpitations. RESPIRATORY: Denies cough. GASTROINTESTINAL: Denies abdominal pain, diarrhea, constipation, nausea or vomiting. MUSCULOSKELETAL: Denies myalgias. NEUROLOGIC: Denies numbness, tingling or weakness. ENDOCRINE: Denies fatigue, weight change, polydipsia or polyurina. GENITOURINARY: Denies burning, hematuria or urgency with micturation. HEMATOLOGIC: Denies history of anemia or bleeding. PHYSICAL EXAMINATION Vital signs reviewed. CONSTITUTIONAL: No apparent distress. HEENT: Head is normocephalic. Pupils are equal, round. Sclerae anicteric. Mucous membranes of the mouth are moist. No JVD. No carotid bruit. CHEST EXAMINATION: Lungs are clear to auscultation. No chest wall tenderness is noted on palpation or with deep breathing. HEART EXAMINATION: Regular rate and rhythm. S1, S2 heard. No murmurs, gallops or rub. ABDOMEN: Soft, nontender. Positive bowel sounds. EXTREMITIES: 2+ peripheral pulses, no lower extremity edema and no calf tenderness. NEUROLOGIC EXAMINATION: Patient is awake, alert and oriented x3. ASSESSMENT Atypical chest pain Alcohol abuse Alcohol withdrawals Dyspnea PLAN Most of symptoms appear related to alcohol withdrawal however likely going to rehab and we will check echo and stress test for completeness sake. If testing normal patient will be discharged home from a cardiology standpoint with outpatient follow-up. Discussed alcohol cessation and patient understanding and willing. Past Medical History Past Medical History: No Reported History History of Any Multi-Drug Resistant Organisms: None Reported Past Surgical History: No Surgical Hx Reported Past Anesthesia/Blood Transfusion Reactions: No Reported Reaction Past Psychological History: Anxiety, Depression Smoking Status: Vaper Past Alcohol Use History: Abuse, Daily, Heavy Past Drug Use History: Cocaine - Past Family History Father Family Medical History: Diabetes Mellitus Medications and Allergies Home Medications Medication Instructions Recorded Confirmed Type No Known Home Medications 11/22/23 02/26/25 History Allergies Allergy/AdvReac Type Severity Reaction Status Date / Time cat dander AdvReac Wheezing Verified 02/26/25 17:52 Physical Exam Vitals: Vital Signs Temp Pulse Pulse Resp BP BP Pulse Ox 02/27/25 01:10 98.2 F 92 17 125/82 98 02/26/25 21:21 98.2 F 73 16 122/78 99 02/26/25 20:58 97.8 F 86 18 111/68 99 02/26/25 18:00 82 19 141/96 02/26/25 17:30 93 18 127/80 02/26/25 17:00 77 22 131/87 02/26/25 16:30 85 24 146/106 02/26/25 16:13 77 16 146/106 98 02/26/25 13:16 97.9 F 102 H 20 154/116 99 Intake and Output 02/26/25 02/27/25 02/27/25 22:59 06:59 14:59 Other: # Voids 1 Weight 54.431 kg Results 02/26/25 13:33 02/26/25 13:33 Cardiac Enzymes 02/26/25 02/26/25 Range/Units 13:33 13:33 AST 80 H (17-59) U/L Troponin I <0.012 (0.000-0.034) ng/mL Coagulation 02/26/25 Range/Units 13:33 PT 10.5 (10.0-12.5) sec APTT 23.4 (22.0-30.0) sec CBC 02/26/25 Range/Units 13:33 WBC 6.05 (4.50-10.00) 10*3/uL RBC 5.07 (4.40-5.60) 10*6/uL Hgb 15.1 (13.0-17.0) g/dL Hct 43.3 (39.6-50.0) % Plt Count 281 (140-440) 10*3/uL Comprehensive Metabolic Panel 02/26/25 Range/Units 13:33 Sodium 139 (137-145) mmol/L Potassium 3.8 (3.5-5.1) mmol/L Chloride 102 (98-107) mmol/L Carbon Dioxide 24 (22-30) mmol/L BUN 15 (9-20) mg/dL Creatinine 0.66 (0.66-1.25) mg/dL Glucose 110 H (74-99) mg/dL Calcium 9.4 (8.4-10.2) mg/dL AST 80 H (17-59) U/L ALT 45 (4-49) U/L Alkaline Phosphatase 90 (38-126) U/L Total Protein 7.6 (6.3-8.2) g/dL Albumin 4.8 (3.5-5.0) g/dL Current Medications Generic Name Dose Route Start Last Admin Trade Name Freq PRN Reason Stop Dose Admin Acetaminophen 650 mg 02/26/25 15:02 Acetaminophen Tab 325 Mg Tab PO Q6HR PRN Mild Pain or Fever > 100.5 Heparin Sodium (Porcine) 5,000 unit 02/27/25 09:00 Heparin Sodium,Porcine 5,000 Unit/Ml 1 Ml Vial SQ Q12HR ARTEMIO Sodium Chloride 1,000 mls @ 130 mls/hr 02/26/25 15:00 02/27/25 05:47 Saline 0.9% IV 130 mls/hr .[id number] ARTEMIO Administration Lorazepam 1 mg 02/26/25 14:51 Lorazepam 1 Mg/0.5 Ml Vial IV Q1HR PRN CIWA 10 to 15 Lorazepam 1 mg 02/26/25 14:51 02/27/25 06:40 Lorazepam 1 Mg/0.5 Ml Vial IV 1 mg Q2HR PRN Administration CIWA 8 or 9 Lorazepam 2 mg 02/26/25 14:51 Lorazepam 1 Mg/0.5 Ml Vial IV 02/28/25 14:51 Q10M PRN CIWA 16 or higher Naloxone HCl 0.2 mg 02/26/25 15:02 Naloxone 0.4 Mg/Ml 1 Ml Vial IV Q2M PRN Opioid Reversal Ondansetron HCl 4 mg 02/26/25 15:02 Ondansetron 4 Mg/2 Ml Vial IVP Q8HR PRN Nausea And Vomiting Pantoprazole Sodium 40 mg 02/27/25 07:30 02/27/25 06:41 Pantoprazole 40 Mg Tablet PO 40 mg [id number] ARTEMIO Administration Thiamine HCl 100 mg 02/27/25 09:00 Thiamine 100 Mg Tab PO DAILY ARTEMIO Intake and Output 02/26/25 02/27/25 02/27/25 22:59 06:59 14:59 Other: # Voids 1 Weight 54.431 kg 02/26/25 13:33 02/26/25 13:33
[2025-02-27 08:16] LABS: Basophils # (A) 0.04 X 10*3/uL (0.00-0.10); Basophils % (A) 1.1 %; Eosinophils # (A) 0.16 X 10*3/uL (0.04-0.35); Eosinophils % (A) 4.2 %; HCT 38.5 % (39.6-50.0); HGB 12.7 g/dL (13.0-17.0); Immature Grans, Automated 0 %; Lymphocytes # (A) 0.56 X 10*3/uL (0.90-5.00); Lymphocytes % (A) 14.7 %; MCH 29.5 pg (27.0-32.0); MCV 89.5 FL (80.0-97.0); Mean Platelet Volume 10.7 FL (9.5-12.2); Monocytes # (A) 0.22 X 10*3/uL (0.20-1.00); Monocytes % (A) 5.8 %; NRBC Per 100 WBC 0 X 10*3/uL (0.00-0.01); Neutrophils # (A) 2.82 X 10*3/uL (1.80-7.70); Neutrophils % (A) 74.2 %; Platelet Count 190 X 10*3/uL (140-440); RDW 12.3 % (11.5-14.5)
[2025-02-27 08:24] LABS: ALT 54 U/L (10-49); AST 86 U/L (14-35); Albumin 3.8 g/dL (3.8-4.9); Albumin/Globulin Ratio 1.81 Ratio (1.60-3.17); Alkaline Phosphatase 76 U/L (41-126); BUN/Creat Ratio 19.86 Ratio (12.00-20.00); Blood Urea Nitrogen 13.9 mg/dL (9.0-27.0); Calcium 8.4 mg/dL (8.7-10.3); Carbon Dioxide 18.5 mmol/L (21.6-31.8); Chloride 105 mmol/L (96-109); Globulin 2.1 g/dL (1.6-3.3); Glucose 67 mg/dL (70-110); Potassium 4.8 mmol/L (3.5-5.5); Sodium 138 mmol/L (135-145); Total Bilirubin 1.5 mg/dL (0.3-1.2); Total Protein 5.9 g/dL (6.2-8.2)
[2025-02-27] MEDS: THIAMINE 100 MG TAB PO SCH (08:57)
[2025-02-27] MEDS: HEPARIN SODIUM,PORCINE 5,000 UNIT/ML 1 ML VIAL SQ SCH (08:57)
--- NOTE | 2025-02-27 10:39 | CA ---
Transthoracic Echo Report Name: Jose Contreras Age: 35 Gender: M : 1990 Exam Date: 02/27/2025 08:07 Exam Location: [place] [facility] Ht (in): 66 Wt (lb): 120 Ordering Physician: Zaida Ha MD Attending/Referring Phys: Department Manager Ant Murrieta RDCS Procedure CPT: Indications: Chest Pain Cardiac Hx: Technical Quality: Contrast 1: Total Dose (mL): Contrast 2: Total Dose (mL): MEASUREMENTS (Male / Female) Normal Values 2D ECHO LV Diastolic Diameter PLAX 4.9 cm 4.2 - 5.9 / 3.9 - 5.3 cm LV Systolic Diameter PLAX 3.2 cm IVS Diastolic Thickness 0.8 cm 0.6 - 1.0 / 0.6 - 0.9 cm LVPW Diastolic Thickness 0.8 cm 0.6 - 1.0 / 0.6 - 0.9 cm LV Relative Wall Thickness 0.3 RV Internal Dim ED PLAX 2.4 cm LVOT Diameter 1.6 cm LA Systolic Diameter LX 2.3 cm 3.0 - 4.0 / 2.7 - 3.8 cm LV Diastolic Volume MOD BP 78.2 cm??? 67 - 155 / 56 - 104 cm??? LV Systolic Volume MOD BP 30.5 cm??? 22 - 58 / 19 - 49 cm??? LV Ejection Fraction MOD BP 61.1 % >= 55 % LV Diastolic Volume MOD 4C 73.5 cm??? LV Systolic Volume MOD 4C 28.4 cm??? LV Ejection Fraction MOD 4C 61.4 % LV Diastolic Length 4C 7.0 cm LV Systolic Length 4C 5.9 cm LV Diastolic Volume MOD 2C 80.6 cm??? LV Systolic Volume MOD 2C 31.3 cm??? LV Ejection Fraction MOD 2C 61.2 % LV Diastolic Length 2C 7.2 cm LV Systolic Length 2C 5.6 cm LA Volume 42.1 cm??? 18 - 58 / 22 - 52 cm??? LA Volume Index 26.6 cm???/m??? 16 - 28 cm???/m??? DOPPLER MV Area PHT 2.6 cm??? Mitral E Point Velocity 59.4 cm/s Mitral A Point Velocity 60.5 cm/s Mitral E to A Ratio 1.0 MV Deceleration Time 289.2 ms FINDINGS Left Ventricle Left ventricular ejection fraction is estimated at 55 %. Normal Left ventricular size, wall thickness, systolic function with no obvious regional wall motion abnormalities. Right Ventricle Normal right ventricular size and function. Unable to estimate the right ventricular systolic pressure. Right Atrium Normal right atrial size. Left Atrium Normal left atrial size. Mitral Valve Mitral annular calcification. No mitral stenosis, regurgitation or prolapse. Aortic Valve Trileaflet aortic valve. No aortic valve stenosis or regurgitation. Tricuspid Valve Structurally normal tricuspid valve. No tricuspid stenosis. Trace tricuspid regurgitation. Pulmonic Valve Pulmonic valve not well visualized. . No pulmonic stenosis. Trace pulmonic regurgitation. Pericardium No pericardial effusion. Aorta Aortic annulus normal. CONCLUSIONS Left ventricular ejection fraction 55% Trace tricuspid regurgitation Trace pulmonic regurgitation No pericardial effusion Previewed by: Dr. Christos Mcdonald DO (Electronically Signed) Final Date: 27 February 2025 10:38
--- NOTE | 2025-02-27 12:37 | CA ---
Stress Echo Report Jose Contreras Age: 35 Gender: M : 1990 Exam Date: 02/27/2025 10:51 Exam Location: [place] [facility] Ht (in): 66 Wt (lb): 120 Ordering Physician: Christos Mcdonald DO ([email or web address]) Referring Physician: ORION, Assistant Public Defender: Ant Murrieta RDCS Technologist Procedure CPT: Indication: re: CP ICD-9 Codes: Rhythm: Patient History: Chest pain , ALETA and palpitations. Cardiac Medications: Medications in past 24 hours: Contrast: Stress Results Protocol: Parminder Total dose(mL): Exercise Duration (min:sec): 10:[address] Depression (mm): Angina Score: Boyle Score: METS: 11.7 Resting HR: 95 Resting BP: 144 / 93 Peak HR: 177 Peak BP: 171 / 93 Max Predicted HR: 184 96 % Max Predicted HR Target HR: 156 Double Product: 79855 Stress Summary: BP Response: Reason for Termination: Maximal effort/unable to continue Cardiac Symptoms: No Symptoms ECG Analysis Resting ECG: Stress ECG: Arrhythmia: Echo Analysis Resting Echo: Peak Echo Analysis: MEASUREMENTS (Male/Female) Normal Values CONCLUSIONS Patient underwent exercise stress echo with a Parminder protocol treadmill stress test. Patient exercised into Stage 4 for a total of 10 minutes and 17-second reaching a total of 11 point METS. Patient's maximum heart rate was 177 which represented 96% age-predicted maximum heart rate. Stress EKG portion: At baseline patient's EKG showed normal sinus rhythm, normal axis, no significant ST or T wave abnormalities. At peak exercise, EKG showed no significant change from baseline. Stress echo portion: 2-D echocardiogram was performed in the parasternal long, personal short, apical 2 and apical four-chamber views at rest, peak exercise and in recovery. At baseline, echocardiogram showed left ventricular ejection fraction 55% without wall motion abnormalities. With peak exercise, echocardiogram shows improvement in left ventricular ejection fraction, increase contractility, decrease in left ventricular end systolic dimension without wall motion abnormalities consistent with a normal response to exercise. Conclusions: 1. Normal EKG and echo response to exercise without evidence of inducible ischemia. 2. Good exercise capacity. Dr. Christos Mcdonald DO (Electronically Signed) Final Date: 27 February 2025 12:36
--- NOTE | 2025-02-28 03:06 | PN ---
PROGRESS NOTE DATE OF SERVICE: 02/27/2025 CHIEF COMPLAINT: Acute alcohol intoxication. HISTORY OF PRESENT ILLNESS: This gentleman is still intoxicated. He is quite lethargic. PHYSICAL EXAMINATION: CHEST: Clear. CARDIAC: Normal. IMPRESSION: Acute alcohol intoxication. PLAN: Continue with [facility] protocol. BALJINDER / MARCIAN: [id number] /
--- NOTE | 2025-02-28 03:12 | CONS ---
CONSULTATION CHIEF COMPLAINT: Acute alcohol intoxication. HISTORY OF PRESENT ILLNESS: This gentleman is admitted through the emergency room for acute alcohol intoxication. REVIEW OF SYSTEMS: Not reliably obtained. He states he is still very tremulous. PHYSICAL EXAMINATION: VITAL SIGNS: Normal. CHEST: Clear. CARDIAC: Normal. ABDOMEN: Soft and slightly distended. Bowel sounds are present. Liver is not palpable. IMPRESSION: 1. Acute alcohol intoxication. 2. Chronic alcoholism. PLAN: 1. Bed rest. 2. IV fluids. 3. Seizure precautions. 4. WA protocol. MMODL / IJN: [id number] /
[2025-02-28 07:29] VITALS: BP 145/89; PULSE 99; RESP 16; TEMP 98
--- NOTE | 2025-02-28 23:41 | DS ---
DISCHARGE SUMMARY CHIEF COMPLAINT: Acute alcohol intoxication. HISTORY OF PRESENT ILLNESS AND PHYSICAL EXAMINATION: Details of this man's history and physical can be found in the initial workup. LABORATORY STUDIES: White he was in the hospital, he had laboratory studies, details of which can be found in the laboratory section of his chart. COURSE IN THE HOSPITAL: After admission, he was placed at bedrest and started on intravenous fluids and CIWA protocol. He went into DTs for a day or so, but then cleared up and was doing well. It was felt that he could go home on his usual diet and activity and he will follow up in the office. FINAL DIAGNOSES: 1. Acute alcohol intoxication. 2. Chronic alcoholism. OPERATIONS: None. CONSULTATIONS: None. MMODL / IJN: [id number] /
== END 2025-02-28 12:50 | disposition home or self-care (01) ==
LOC: EC 13:14 → 6NMEDSUR 15:02
PROVIDERS: ADMIT Family Medicine; ATTEND Family Medicine
DX: F10.229 Alcohol dependence with intoxication, unspecified (principal); F10.239 Alcohol dependence with withdrawal, unspecified; R07.89 Other chest pain; Y90.6 Blood alcohol level of 120-199 mg/100 ml; F14.10 Cocaine abuse, uncomplicated; F32.A Depression, unspecified; F41.9 Anxiety disorder, unspecified; F17.290 Nicotine dependence, other tobacco product, uncomplicated; Z91.048 Other nonmedicinal substance allergy status
CPT/HCPCS: 96376; 96361; 96372; 96374; 96375; 99285; 36415; 93005 ×2; 93306; 93351; 85379; 80053 ×2; 83735; 84484; 85025 ×2; 85610; 85730; 80320; 71046; G0378 ×3; J2060 ×2; J3411; J2405